=== PATIENT | female | born 1955 | race Caucasian/White ===

== ENCOUNTER → 2020-03-22 14:04 | Outpatient (CLI) | payer OTHER, SELFPAY ==
--- NOTE | ~2020-03-22 | XR_ITS ---
EXAMINATION: [id number]_CR DATE: 03/22/2020 14:36 INDICATION: Right chest pain. Shortness of breath. TECHNIQUE: A frontal view of the chest and 3 views of the right ribs were obtained. COMPARISON: None. FINDINGS: The chest demonstrates clear lungs without pneumonia, pleural effusion, or pneumothorax. Th e heart size is normal. Surgical clips in the right upper quadrant are likely from cholecystectomy. T here is a fracture of right eighth rib. IMPRESSION: 1. Fracture of right eighth rib. Reviewed, dictated and finalized at location A.
== END ==
PROVIDERS: PCP Internal Medicine; Visit Provider Internal Medicine
DX: S22.31XA Fracture of one rib, right side, initial encounter for closed fracture (principal); X58.XXXA Exposure to other specified factors, initial encounter
CPT/HCPCS: 71101

== ENCOUNTER 2020-08-05 07:46 | Outpatient (CLI) | payer OTHER, SELFPAY ==
--- NOTE | ~2020-08-05 | MM_ITS ---
EXAMINATION: MM screening jane BI w katerina HISTORY: Screening TECHNIQUE: Craniocaudal and mediolateral oblique 3-D tomosynthesis images were obtained and synthetic 2-D images were generated. CAD analysis was submitted and interpreted. COMPARISON: No prior mammogram is available for comparison at this institution. BREAST PARENCHYMAL COMPOSITION: There are scattered areas of fibroglandular density. FINDINGS: There is no evidence of suspicious mass, calcification, or architectural distortion to sugg est malignancy in either breast. There has been no suspicious interval change. IMPRESSION: 1. No mammographic evidence of malignancy. 2. Recommend routine screening mammography in one year. BI-RADS Category 1: Negative Reviewed, dictated and finalized at location A. R MOUNTER
== END 2020-08-05 07:47 | disposition home or self-care (01) ==
LOC: ANHIMG 07:51
PROVIDERS: PCP Internal Medicine; Visit Provider Obstetrics & Gynecology
DX: Z12.31 Encounter for screening mammogram for malignant neoplasm of breast (principal)
CPT/HCPCS: 77063; 77067

== ENCOUNTER 2021-09-08 09:53 | Outpatient (CLI) | payer BC, SELFPAY ==
--- NOTE | ~2021-09-08 | MM_ITS ---
EXAMINATION: MM screening jane BI w katerina HISTORY: Screening mammogram TECHNIQUE: Craniocaudal and mediolateral oblique 3-D tomosynthesis images were obtained and synthetic 2-D images were generated. CAD analysis was submitted and interpreted. COMPARISON: 08/05/2020 BREAST PARENCHYMAL COMPOSITION: There are scattered areas of fibroglandular density. FINDINGS: Scattered benign-appearing calcifications are present. There is no evidence of suspicious m ass, calcification, or architectural distortion to suggest malignancy in either breast. There has bee n no suspicious interval change. IMPRESSION: 1. No mammographic evidence of malignancy. 2. Recommend routine screening mammography in one year. BI-RADS Category 2: Benign finding(s). Reviewed, dictated and finalized at location A. HIC SPECIALIST
== END 2021-09-08 09:54 | disposition home or self-care (01) ==
LOC: ANHIMG 09:55
PROVIDERS: PCP Internal Medicine; Visit Provider Obstetrics & Gynecology
DX: Z12.31 Encounter for screening mammogram for malignant neoplasm of breast (principal)
CPT/HCPCS: 77063; 77067

== ENCOUNTER 2022-09-11 09:01 | Outpatient (CLI) | payer OTHER, SELFPAY ==
--- NOTE | ~2022-09-11 | MM_ITS ---
EXAMINATION: MM screening jane BI w katerina HISTORY: Screening mammogram TECHNIQUE: Craniocaudal and mediolateral oblique 3-D tomosynthesis images were obtained and synthetic 2-D images were generated. CAD analysis was submitted and interpreted. COMPARISON: 09/08/2021, 08/05/2020 BREAST PARENCHYMAL COMPOSITION: There are scattered areas of fibroglandular density. FINDINGS: Scattered benign-appearing calcifications are present. No suspicious mass, calcification, o r architectural distortion are identified in either breast to suggest malignancy. There has been no s uspicious interval change. IMPRESSION: 1. No mammographic evidence of malignancy. 2. Recommend routine screening mammography in one year. BI-RADS Category 2: Benign finding(s). Reviewed, dictated and finalized at location A. STER DIRECTOR
== END 2022-09-11 09:02 | disposition home or self-care (01) ==
LOC: ANHIMG 09:04
PROVIDERS: PCP Family Medicine Adolescent Medicine; Visit Provider Obstetrics & Gynecology
DX: Z12.31 Encounter for screening mammogram for malignant neoplasm of breast (principal)
CPT/HCPCS: 77063; 77067

== ENCOUNTER → 2022-11-14 09:25 | Outpatient (CLI) | payer OTHER, SELFPAY ==
--- NOTE | ~2022-11-14 | XR_ITS ---
XR knee LT 3V 11/14/2022 09:58 Indication: Left knee pain Procedure: 3 views of the left knee Comparison: No prior studies for comparison. Findings: No fracture, subluxation or dislocation. There is mild-moderate osteoarthritis. No foreign bodies. No significant joint effusion. Impression: 1: Mild-moderate osteoarthritis of the left knee. Reviewed, dictated and finalized at location L. Impression: 1: Mild-moderate osteoarthritis of the left knee.
--- NOTE | ~2022-11-14 | XR_ITS ---
XR knee RT 3V 11/14/2022 09:58 Indication: Right knee pain Procedure: 3 views right knee Comparison: No prior studies for comparison. Findings: There is mild osteoarthritis of the right knee. No fracture, subluxation or dislocation. No significant joint effusion. Lung bodies. Impression: 1: Mild osteoarthritis of the right knee. Reviewed, dictated and finalized at location L. Impression: 1: Mild osteoarthritis of the right knee.
== END ==
PROVIDERS: PCP Family Medicine Adolescent Medicine; Visit Provider Family Medicine Adolescent Medicine
DX: M17.0 Bilateral primary osteoarthritis of knee (principal)
CPT/HCPCS: 73562

== ENCOUNTER 2023-01-11 02:52 | Day surgery (SDC) | payer OTHER, SELFPAY ==
[2023-01-01 09:53] VITALS: BMI 25.4
[2023-01-11 10:01] VITALS: BP 122/71; PULSE 85; RESP 20; TEMP 36.8; O2SAT 100; BMI 24.4
[2023-01-11] MEDS: LACTATED RINGERS 1,000 ML 150 ML IV CONT (10:07)
--- NOTE | 2023-01-11 10:22 | WPDANESEPPF ---
Anes - Initial Pre Proc Eval Procedure: Operation Date: 01/11/23 10:30 Proposed Procedures p Screening Colonoscopy - Bentley Daniels MD Date/Time: 01/11/23 10:22 Surgeon: Bentley Daniels MD Pre Op Diagnosis: neoplasm screening Patient Data Age: 67 Gender: F Height: 1.55 m Weight: 58.7 kg Last Vital Signs Temp 98.3 F 01/11/23 10:01 Pulse 85 01/11/23 10:01 Resp 20 01/11/23 10:01 BP 122/71 01/11/23 10:01 Pulse Ox 100 01/11/23 10:01 O2 Del Method Room Air 01/11/23 10:01 Allergies Allergy/AdvReac Type Severity Reaction Status Date / Time No Known Allergies Allergy Verified 01/11/23 09:58 Home Medications Medication Instructions Recorded Confirmed Type amantadine HCl 100 mg tablet 100 mg PO DAILY 02/28/22 01/01/23 History calcium carbonate 500 mg/5 mL 500 mg PO DAILY 02/28/22 01/01/23 History calcium (1,250 mg/5 mL) oral suspension carbidopa 25 mg-levodopa 100 1 tablet PO .bedtime 02/28/22 01/01/23 History mg-entacapone 200 mg tablet carbidopa 25 mg-levodopa 100 1 tablet PO TID 02/28/22 01/01/23 History mg-entacapone 200 mg tablet clonazepam 1 mg tablet 2 mg PO QHS 02/28/22 01/01/23 History entacapone 200 mg tablet 200 mg PO TID 02/28/22 01/01/23 History lutein 20 mg capsule 20 mg PO BID 02/28/22 01/01/23 History multivit with 1 tablet PO DAILY 02/28/22 01/01/23 History ehvpwkfa-isfj-HN-lutein 8 mg iron-400 mcg-300 mcg tablet (Centrum Silver Women) vitamin B complex 1 tablet PO DAILY 02/28/22 01/01/23 History ropinirole 1 mg tablet 1 mg PO TID #270 tabs 05/09/22 01/01/23 Rx atorvastatin 40 mg tablet See Rx Instructions .Route 10/24/22 01/01/23 Rx .COMPLEX #90 tabs diclofenac sodium 75 mg 75 mg PO BID #60 tabs 11/05/22 01/01/23 Rx tablet,delayed release Patient hx anesthesia problems: none Family hx anesthesia problems: none Results Review: All pre-operative results and documents have been reviewed as part of the pre-operative evaluation. [facility] Family History Family History (Updated 02/28/22 @ 12:54 by Tatyana Cantu MA) Mother Asthma Diabetes mellitus Heart disease Hypertension Father Heart disease Hypertension Social History Social History (Updated 02/28/22 @ 12:55 by Tatyana Cantu MA) Smoking status: Never smoker Second hand tobacco smoke exposure: No Alcohol intake: never Substance use: never Substance use type: does not use Living arrangements: with family Occupation/Education: retired Gender identity (if verbalized by the patient): Female Spiritual care concerns: No Agree to blood products: Yes Anes - Eval Final PreProcedure Day of Procedure 01/11/23 10:22 Patient weight: normal Heart: regular rate and rhythm Lungs: clear to auscultation Airway: Mallampati scale class II Neurological: alert and oriented Last oral intake: >/= 8 hours ASA classification: III Emergent: no Anesthetic plan: proceed Anesthesia type and monitoring: general GIVS and standard monitoring Results Review: All pre-operative results and documents have been reviewed as part of the pre-operative evaluation. Informed Consent: The patient's anesthetic plan and its attendant risks and benefits were discussed with the patient/family/POA. Questions were solicited and answers provided to the satisfaction of the patient/family/POA.
--- NOTE | 2023-01-11 10:41 | PM.HPGS ---
History of Present Illness History of Present Illness Consent: Risks, benefits, and alternatives have been discussed and questions answered. Patient agrees to proceed with procedure. Chief complaint: neoplasm screening Narrative: Aster Zaragoza is a 67 year old female presents for screening colonoscopy. Patient's current weight appetite and bowel movements are normal. Patient denies abdominal pain she has had no bleeding. Family history noncontributory. Previous colonoscopy more than 15 years ago was unremarkable. Patient's past medical history is significant for Parkinson's disease. Review of Systems Review of Systems: Review of systems noncontributory. [facility] Family History Family History (Updated 02/28/22 @ 12:54 by Tatyana Cantu MA) Mother Asthma Diabetes mellitus Heart disease Hypertension Father Heart disease Hypertension Social History Social History (Updated 02/28/22 @ 12:55 by Tatyana Cantu MA) Smoking status: Never smoker Second hand tobacco smoke exposure: No Alcohol intake: never Substance use: never Substance use type: does not use Living arrangements: with family Occupation/Education: retired Gender identity (if verbalized by the patient): Female Spiritual care concerns: No Agree to blood products: Yes Meds Home Medications and Allergies Home Medications Medication Instructions Recorded Confirmed Type amantadine HCl 100 mg tablet 100 mg PO DAILY 02/28/22 01/01/23 History calcium carbonate 500 mg/5 mL 500 mg PO DAILY 02/28/22 01/01/23 History calcium (1,250 mg/5 mL) oral suspension carbidopa 25 mg-levodopa 100 1 tablet PO .bedtime 02/28/22 01/01/23 History mg-entacapone 200 mg tablet carbidopa 25 mg-levodopa 100 1 tablet PO TID 02/28/22 01/01/23 History mg-entacapone 200 mg tablet clonazepam 1 mg tablet 2 mg PO QHS 02/28/22 01/01/23 History entacapone 200 mg tablet 200 mg PO TID 02/28/22 01/01/23 History lutein 20 mg capsule 20 mg PO BID 02/28/22 01/01/23 History multivit with 1 tablet PO DAILY 02/28/22 01/01/23 History zxryaxay-dwvd-GJ-lutein 8 mg iron-400 mcg-300 mcg tablet (Centrum Silver Women) vitamin B complex 1 tablet PO DAILY 08/23/22 06/26/23 History ropinirole 1 mg tablet 1 mg PO TID #270 tabs 05/09/22 01/01/23 Rx atorvastatin 40 mg tablet See Rx Instructions .Route 10/24/22 01/01/23 Rx .COMPLEX #90 tabs diclofenac sodium 75 mg 75 mg PO BID #60 tabs 11/05/22 01/01/23 Rx tablet,delayed release Allergies Allergy/AdvReac Type Severity Reaction Status Date / Time No Known Allergies Allergy Verified 01/11/23 09:58 Vital Signs Vital Signs - 24 hr 01/11/23 10:01 Temperature 98.3 F Pulse Rate 85 Respiratory Rate 20 Blood Pressure 122/71 Pulse Oximetry 100 Oxygen Delivery Room Air Exam Narrative: Physical exam reveals patient be alert comfortable at rest lying in bed. HEENT exam reveals no icterus. Lungs are clear. Heart without murmur. Abdomen bowel sounds present soft nontender with no organomegaly. Digital external rectal exam normal. Assessment and Plan Assessment and plan (1) Encounter for screening colonoscopy: Code(s): Z12.11 - Encounter for screening for malignant neoplasm of colon Status: Acute Assessment and Plan: Patient presents today for screening colonoscopy. She appears to be at average risk for colon polyps. Further recommendations may be given after endoscopy. (2) Parkinson disease: Code(s): G20 - Parkinson's disease Status: Acute
[2023-01-11 11:36] VITALS: BP 105/60; PULSE 78; RESP 16; O2SAT 100
[2023-01-11 11:46] VITALS: BP 108/66; PULSE 76; RESP 16; O2SAT 100
[2023-01-11 11:56] VITALS: BP 128/61; PULSE 74; RESP 20; O2SAT 100
== END 2023-01-11 12:12 | disposition home or self-care (01) ==
PROVIDERS: PCP Family Medicine Adolescent Medicine; Visit Provider Internal Medicine Gastroenterology
PROC: 0DJD8ZZ Inspection of Lower Intestinal Tract, Via Natural or Artificial Opening Endoscopic (ICD-10-PCS; CPT 45378; principal; 2023-01-11 10:30)
DX: Z12.11 Encounter for screening for malignant neoplasm of colon (principal); K64.8 Other hemorrhoids; G20 Parkinson's disease
CPT/HCPCS: G0121; J2704; J7120

== ENCOUNTER 2023-02-01 09:54 | Emergency (ER) | payer OTHER, SELFPAY ==
[2023-02-01] VITALS (11 sets, daily range): BP systolic 70–106; BP diastolic 27–68; PULSE 49–72; RESP 16–29; TEMP 36.3–36.4; O2SAT 97–100
--- NOTE | ~2023-02-01 | XR_ITS ---
EXAMINATION: XR shoulder RT min 2V, XR humerus RT, XR elbow RT min 3V DATE: 02/01/2023 10:54 INDICATION: Right arm pain at the proximal humerus and bruising at the elbow post fall TECHNIQUE: 1. AP and transscapular Y views of the right shoulder were obtained. 2. AP and lateral views of the right humerus were obtained. 3. AP, lateral and oblique views of the right elbow were obtained. COMPARISON: None FINDINGS: Mild comminution along a transverse fracture extending across the surgical neck of the proximal right humerus. 5 mm posterior displacement and mild posterior angulation still consistent with a 1 part fr acture. No other acute fractures identified. Mild right acromioclavicular osteoarthritis. Right gleno humeral joint space is not well profiled but alignment appears normal. Normal alignment and joint spa miri at the right elbow. Visualized portions of the lungs are clear. Chronic anterior right sixth-eigh th rib fractures. Cholecystectomy clips in right upper quadrant. IMPRESSION: Mildly displaced and angulated and mildly comminuted 1 part fracture at the surgical neck of the prox imal right humerus. Reviewed, dictated and finalized at location A. IMPRESSION: Mildly displaced and angulated and mildly comminuted 1 part fracture at the roderick gical neck of the proximal right humerus. IMPRESSION: Mildly displaced and angulated and mildly comminuted 1 part fracture at the roderick gical neck of the proximal right humerus.
--- NOTE | 2023-02-01 10:28 | PC.NURSE ---
Patient off unit to radiology.
--- NOTE | 2023-02-01 11:45 | ED.UPPEXIN ---
HPI - Extremity Injury (Upper) General Chief Complaint: Extremity Injury, Upper Stated Complaint: r arm/shoulder pain Time Seen by Provider: 02/01/23 11:44 Source: patient and family Limitations: no limitations History of Present Illness HPI narrative: 67 years old white female standing at around at home, tripped and fell on the right side complaining of right shoulder pain, denies other injuries. No head injury or neck injury. History of Parkinson Related Data Home Medications Medication Instructions Recorded Confirmed amantadine HCl 100 mg tablet 100 mg PO DAILY 02/28/22 01/01/23 calcium carbonate 500 mg/5 mL 500 mg PO DAILY 02/28/22 01/01/23 calcium (1,250 mg/5 mL) oral suspension carbidopa 25 mg-levodopa 100 1 tablet PO .bedtime 02/28/22 01/01/23 mg-entacapone 200 mg tablet carbidopa 25 mg-levodopa 100 1 tablet PO TID 02/28/22 01/01/23 mg-entacapone 200 mg tablet clonazepam 1 mg tablet 2 mg PO QHS 02/28/22 01/01/23 entacapone 200 mg tablet 200 mg PO TID 02/28/22 01/01/23 lutein 20 mg capsule 20 mg PO BID 02/28/22 01/01/23 ndyyyznz-wldn-tzuk 8 mg-folic 400 1 tablet PO DAILY 02/28/22 01/01/23 mcg-K 50 mcg-lutein 300 mcg tablet (Centrum Silver Women) vitamin B complex 1 tablet PO DAILY 02/28/22 01/01/23 Allergies Allergy/AdvReac Type Severity Reaction Status Date / Time No Known Allergies Allergy Verified 02/01/23 09:54 Review of Systems Review of Systems: All systems reviewed & are unremarkable except as noted in HPI and below PMFSH Family History Family History Mother Asthma Diabetes mellitus Heart disease Hypertension Father Heart disease Hypertension Social History Social History Smoking status: Never smoker Second hand tobacco smoke exposure: No Alcohol intake: never Substance use: never Substance use type: does not use Living arrangements: with family Occupation/Education: retired Gender identity (if verbalized by the patient): Female Spiritual care concerns: No Agree to blood products: Yes Exam Narrative: General appearance: Well-developed, well-nourished Skin: Normal color Head: Normocephalic, nontraumatic Eyes: Clear conjunctiva ENT: Oropharynx normal, ears normal, nose normal Neck: Supple, nontender Chest and respiratory: Airway patent, no respiratory distress, no accessory muscle use Heart: Regular rate/rhythm Abdomen: Soft, nontender, no organomegaly, quiet bowel sounds Vascular: Normal peripheral pulses, normal capillary refill. 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 Date: 02/01/23 Time: 11:59 Vital Signs Vital signs: Vital Signs Temperature 36.3 C L 02/01/23 09:55 Pulse Rate 54 L 02/01/23 09:55 Respiratory Rate 18 02/01/23 09:55 Blood Pressure 70/27 L 02/01/23 09:55 Pulse Oximetry 100 02/01/23 09:55 Oxygen Delivery Room Air 02/01/23 09:55 Temperature 36.4 C 02/01/23 12:50 Pulse Rate 60 02/01/23 12:50 Respiratory Rate 16 02/01/23 12:50 Blood Pressure 104/68 02/01/23 12:50 Pulse Oximetry 100 02/01/23 12:50 Oxygen Delivery Room Air 02/01/23 09:55 MDM - Extremity Injury (Upper) MDM Narrative Medical decision making narrative: Patient had a ground fall, complaining of right shoulder pain, no other injuries, x-ray right shoulder showed right humeral surgical nec
[2023-02-01] MEDS: ONDANSETRON INJ 4 MG/2 ML VIAL IV PUSH (12:04)
[2023-02-01] MEDS: HYDROmorphone HCL INJ (*CRX) 1 MG/ML SYR 0.5 MG IV PUSH (12:05)
== END 2023-02-01 13:25 | disposition home or self-care (01) ==
PROVIDERS: Emergency Provider Emergency Medicine; PCP Family Medicine Adolescent Medicine
DX: S42.211A Unspecified displaced fracture of surgical neck of right humerus, initial encounter for closed fracture (principal); G20 Parkinson's disease; W01.0XXA Fall on same level from slipping, tripping and stumbling without subsequent striking against object, initial encounter
CPT/HCPCS: 73030; 73060; 73080; 96374; 96375; 99284; J1170; J2405

== ENCOUNTER 2023-11-13 15:39 | Outpatient (CLI) | payer OTHER, SELFPAY ==
--- NOTE | ~2023-11-13 | MM_ITS ---
EXAMINATION: MM screening jane BI w katerina HISTORY: Screening mammogram TECHNIQUE: Craniocaudal and mediolateral oblique 3-D tomosynthesis images were obtained and synthetic 2-D images were generated. CAD analysis was submitted and interpreted. COMPARISON: 09/11/2022, 09/08/2021, 08/05/2020 bilateral screening mammogram examinations BREAST PARENCHYMAL COMPOSITION: There are scattered areas of fibroglandular density. FINDINGS: There is no evidence of suspicious mass, calcification, or architectural distortion to sugg est malignancy in either breast. There has been no suspicious interval change. IMPRESSION: 1. No mammographic evidence of malignancy. 2. Recommend routine screening mammography in one year. BI-RADS Category 1: Negative Reviewed, dictated and finalized at location B.
== END 2023-11-13 15:40 | disposition home or self-care (01) ==
PROVIDERS: PCP Family Medicine Adolescent Medicine; Visit Provider Obstetrics & Gynecology
DX: Z12.31 Encounter for screening mammogram for malignant neoplasm of breast (principal)
CPT/HCPCS: 77063; 77067

== ENCOUNTER 2023-12-18 07:57 | Outpatient (CLI) | payer OTHER, SELFPAY ==
--- NOTE | ~2023-12-18 | DEXA_ITS ---
Bone Density Report Name: SAMMY GOODMAN Age: 68 Sex: Female Ethnicity: White Date of : 1955 Indication: postmenopausal; screening for osteoporosis; Referring Provider: KAT BALL Study: Bone densitometry was performed. Exam Date: December 18, 2023 Accession number: [id number] Bone Density: Region BMD T-score Z-score Classification AP Spine(L1-L4) 0.947 -0.9 1.0 Normal Femoral Neck (Left) 0.604 -2.2 -0.6 Osteopenia Total Hip (Left) 0.821 -1.0 0.3 Normal Femoral Neck (Right) 0.562 -2.6 -1.0 Osteoporosis Total Hip (Right) 0.791 -1.2 0.1 Osteopenia Total Hip Mean 0.806 -1.1 0.2 Osteopenia World Health Organization criteria for BMD impression classify patients as: Normal (T-score at or above -1.0), Osteopenia (T-score between -1.0 and -2.5), or Osteoporosis (T-score at or below -2.5). 10-year Fracture Risk: FRAX not reported because: Some T-score for Spine Total or Hip Total or Femoral Neck at or below -2.5 Clinical Information Provided by Patient: Has used the following medications: Vitamin D, Calcium Patient maximum height was 60 Menopause Age: 52 No regular weight bearing exercise Does not regularly consume dairy products Drinks caffeinated beverages Onset of menses at age 16 Number of children 1 Impression: The patient has osteoporosis, based on the Right Femoral Neck T-score. Discussion: INCREASED RISK OF FRACTURE. BONE DENSITY IS UNDESIRABLY LOW AT ONE OR MORE SKELETAL SITES, CONSISTENT WITH POSTMENOPAUSAL OSTEOPOROSIS. This patient's lowest T-score meets the World Health Organization's (WHO) criteria for osteoporosis at one or more sites (T-score -2.5 or below). In untreated patients, the risk of osteoporotic fracture increases approximately two-fold for each 1.0 SD decrease in T-score. Low bone density is not the only risk factor for fracture; also consider factors such as patient's age, frailty or poor health, risk of falling, risk of injury, previous osteoporotic fracture, family history of osteoporosis, cigarette smoking, low body weight, etc. Not everyone with low bone mineral density has osteoporosis; osteomalacia and other metabolic bone disorders should also be considered. Patients who have osteoporosis should be evaluated for specific diseases and conditions (secondary causes) that may cause or contribute to bone loss. The [place] [employer] Endocrinologists (AACE) and National Osteoporosis Foundation (NOF) recommend pharmacologic intervention for all postmenopausal women whose T-score is in this range. The patient should follow a healthful lifestyle (good nutrition with adequate calcium and vitamin D, and appropriate weight-bearing exercise). Follow-Up: Consider a repeat BMD and Vertebral Fracture Assessment (VFA) exam in 2 years or sooner if medically necessary, to reassess this patient's status. Reported by: JUVENCIO on 12/18/2023 8:31:00
== END 2023-12-18 07:58 | disposition home or self-care (01) ==
PROVIDERS: PCP Family Medicine Adolescent Medicine; Visit Provider Obstetrics & Gynecology
DX: M81.0 Age-related osteoporosis without current pathological fracture (principal); M85.852 Other specified disorders of bone density and structure, left thigh; M85.851 Other specified disorders of bone density and structure, right thigh
CPT/HCPCS: 77080

== ENCOUNTER 2024-04-30 15:22 | Outpatient (CLI) | payer OTHER, SELFPAY ==
--- NOTE | ~2024-04-30 | XR_ITS ---
Exam: Abdomen 2V HISTORY: R10.13 - Epigastric pain COMPARISON: None. TECHNIQUE: Supine images of the abdomen and pelvis. FINDINGS: Bowel gas pattern is non-obstructive. Moderate fecal stasis within the colon and rectum. Significant gaseous distention of the stomach is noted. The liver is enlarged measuring 21 cm in longitudinal dimension IMPRESSION: Significant gaseous distention of the stomach with moderate fecal stasis in the colon and rectum. Hepatomegaly. Reviewed, dictated and finalized at location A.
--- NOTE | ~2024-04-30 | XR_ITS ---
EXAMINATION: XR thoracolumbar DATE: 04/30/2024 16:04 INDICATION: Dorsalgia TECHNIQUE: Standing AP and lateral views of the lumbar and mid to lower thoracic spine were obtained. COMPARISON: None. FINDINGS: Sagittal alignment is normal. Mild lumbar levocurvature. Mild chronic appearing likely physiologic an terior wedging at T12. Remainder of the lumbar and visualized mid to lower thoracic vertebral body he ights are normal. Moderate disc height loss at T5-T6 and T6-T7. Mild disc height loss at T7-T8 throug h T9-T10 and at L2-L3 through L4-L5. There is mild global severe right-sided lumbar facet osteoarthri tis. Cholecystectomy clips in right upper quadrant. Visualized portion of lungs are clear with no ple ural effusion. IMPRESSION: 1. Mild lumbar levocurvature with mild spondylosis and severe right-sided facet osteoarthritis. 2. Mild to moderate midthoracic spondylosis with chronic appearing mild likely physiologic anterior w edging at T12. Reviewed, dictated and finalized at location A. IMPRESSION: 1. Mild lumbar levocurvature with mild spondylosis and severe right-sided facet osteoarthritis. 2. Mild to moderate midthoracic spondylosis with chronic appearing mild likely physiologic anterior wedging at T12.
--- NOTE | ~2024-04-30 | XR_ITS ---
XR ribs RT 2V w CXR 2V Ordering provider: Latasha Melgar DO History: . R07.81 - Pleurodynia . Comparison: None. FINDINGS: BONES: No acute rib fracture. Healing fracture in the right humerus. MEDIASTINUM: The cardiac silhouette is not enlarged. LUNGS: No infiltrates, effusions or pneumothorax. OTHER: No free air under the diaphragm. IMPRESSION: 1. No right rib fracture (Note: subtle/nondisplaced rib fractures can be occult on plain films and i f there is continued clinical suspicion for rib fracture, recommend follow up CT chest). 2. No acute cardiopulmonary findings. Reviewed, dictated and finalized at location A. IMPRESSION: 1. No right rib fracture (Note: subtle/nondisplaced rib fractures can be occul t on plain films and if there is continued clinical suspicion for rib fracture, recommend follow up CT chest). 2. No acute cardiopulmonary findings.
[2024-04-30 16:08] LABS: Basophils Absolute Auto 0.1 K/mm3 (0.0-0.1); Basophils Percent Auto 1.2 % (0.2-1.2); Eosinophils Absolute Auto 0.1 K/mm3 (0-0.3); Eosinophils Percent Auto 1.6 % (0-4.4); Hematocrit 32.3 % (37.0-47.0); Hemoglobin 10.3 g/dL (12.0-15.0); Immature Granulocyte Absolute 0.01 K/mm3 (0.00-0.031); Immature Granulocyte Percent A 0.2 % (0-0.5); Lymphocytes Absolute Auto 1.55 K/mm3 (0.9-3.2); Lymphocytes Percent Auto 35.9 % (18.3-44.2); Mean Corpuscular HGB Conc 31.9 g/dl (32-36); Mean Corpuscular Hemoglobin 31.5 pg (26-34); Mean Corpuscular Volume 98.8 fl (80-100); Mean Platelet Volume 10.8 fl (7.4-10.4); Monocytes Absolute Auto 0.5 K/mm3 (0.1-0.6); Monocytes Percent Auto 10.4 % (2.6-8.5); Neutrophils Absolute Auto 2.2 K/mm3 (1.3-6.7); Neutrophils Percent Auto 50.7 % (45.5-73.1); Platelet Count Result 295 k/mm3 (150-375); Red Blood Count 3.27 M/mm3 (4.2-5.4); Red Cell Distribution Width 12.7 % (11.5-14.5); White Blood Count 4.3 K/mm3 (4.5-10.0)
[2024-04-30 16:18] LABS: Alanine Aminotransferase 8 U/L (6-35); Albumin Level 4.2 g/dL (3.5-5.1); Alkaline Phosphatase 92 U/L (38-126); Anion Gap 5 mmol/L (4-12); Aspartate Amino Transferase 99 U/L (14-36); Bilirubin,Total 0.5 mg/dL (0.2-1.3); Blood Urea Nitrogen 19 mg/dL (7-17); Calcium 9.4 mg/dL (8.4-10.2); Carbon Dioxide 30 mmol/L (22-30); Chloride 102 mmol/L (98-107); Estimated Glomerular Filt Rate > 60; Glucose 97 mg/dL (65-110); Lipase 53 U/L (23-300); Sodium 137 mmol/L (137-145)
== END 2024-04-30 15:23 | disposition home or self-care (01) ==
PROVIDERS: PCP Family Medicine Adolescent Medicine; Visit Provider Family Medicine
DX: R10.13 Epigastric pain (principal); M25.511 Pain in right shoulder; R07.81 Pleurodynia; M47.894 Other spondylosis, thoracic region
CPT/HCPCS: 36415; 71046; 71100; 72080; 74018; 80053; 83690; 85025

== ENCOUNTER 2024-05-26 09:13 | Outpatient (CLI) | payer OTHER, SELFPAY ==
--- NOTE | ~2024-05-26 | CT_ITS ---
EXAMINATION: CT abdomen pelvis w con DATE: 05/26/2024 09:42 INDICATION: Hepatomegaly, not elsewhere classified. Abdominal pain. TECHNIQUE: Computed tomography (CT) of the abdomen and pelvis was performed with 100 mL Omnipaque 350 intravenous contrast. Automated exposure control and iterative reconstruction technique were employe d. The dose-length product was 239.27 mGy-cm. COMPARISON: None. FINDINGS: The visualized portions of the lung bases demonstrate mild cyst. No pleural effusion. The h eart size is normal. No pericardial effusion. There are cysts in the liver measuring up to 5 mm. Ther e is moderate intrahepatic biliary duct dilatation. The common duct is dilated to 2.1 cm. There are c hanges of cholecystectomy. The spleen, pancreas, and adrenal glands are normal. There is a 3 mm stone in right kidney. There are cysts in the kidneys measuring up to 6 mm on the left. There is wall thic kening of the descending and sigmoid colon and rectum, consistent with colitis. There is a large amou nt of stool in the proximal colon. There are no pathologically enlarged lymph nodes. There is no free intraperitoneal fluid. There is severe lumbar spondylosis and mild thoracic spondylosis. IMPRESSION: 1. Colitis involving the descending and sigmoid colon and rectum. 2. Intrahepatic and extrahepatic biliary duct dilatation status post cholecystectomy. Correlate with liver function tests to determinate if this finding is clinically significant. Reviewed, dictated and finalized at location A. LOPER SUPPORT ENGINEER IMPRESSION: 1. Colitis involving the descending and sigmoid colon and rectum. 2. Intrahepatic and extrahepatic biliary duct dilatation status post cholecyste ctomy. Correlate with liver function tests to determinate if this finding is cl inically significant.
[2024-05-26 09:31] LABS: Estimated Glomerular Filt Rate > 60
== END 2024-05-26 09:14 | disposition home or self-care (01) ==
LOC: MICIMG 09:13
PROVIDERS: PCP Family Medicine Adolescent Medicine; Visit Provider Family Medicine
DX: R16.0 Hepatomegaly, not elsewhere classified (principal); R10.84 Generalized abdominal pain; R19.7 Diarrhea, unspecified
CPT/HCPCS: 74177; Q9967

== ENCOUNTER 2024-09-09 10:11 | Outpatient (CLI) | payer OTHER, SELFPAY | END 2024-09-09 10:12 | disposition home or self-care (01) | LOC: MICIMG 10:12 | PROVIDERS: PCP Family Medicine; Visit Provider Family Medicine | DX: M25.511 Pain in right shoulder (principal); M25.552 Pain in left hip; S42.201D Unspecified fracture of upper end of right humerus, subsequent encounter for fracture with routine healing; X58.XXXD Exposure to other specified factors, subsequent encounter | CPT/HCPCS: 73030; 73060; 73502 ==

== ENCOUNTER 2024-11-19 08:43 | Outpatient (CLI) | payer OTHER, SELFPAY ==
--- NOTE | ~2024-11-19 | MM_ITS ---
EXAMINATION: MM screening jane BI w katerina HISTORY: Screening TECHNIQUE: Craniocaudal and mediolateral oblique 3-D tomosynthesis images were obtained and synthetic 2-D images were generated. CAD analysis was submitted and interpreted. COMPARISON: Comparison to multiple prior studies sequentially, with oldest reviewed study dated 08/05. BREAST PARENCHYMAL COMPOSITION: Not dense: There are scattered areas of fibroglandular density. FINDINGS: There is a new focal mass in the subareolar location of the right breast. The left breast i s stable without evidence for malignancy. IMPRESSION: 1. New right subareolar mass. 2. Additional mammographic views and possible breast ultrasound are recommended. BI-RADS Category 0: Incomplete: Needs additional imaging evaluation. Reviewed, dictated and finalized at location A. IMPRESSION: 1. New right subareolar mass. 2. Additional mammographic views and possible breast ultrasound are recommended . BI-RADS Category 0: Incomplete: Needs additional imaging evaluation.
--- OUTSIDE RECORDS SUMMARY | 2024-11-19 08:54 | XMS_ITS | Encounter Summary ---
Author Organization [facility] Address [address] [facility] [place] [address] Care Team Providers Care Keg Inspector Name Role Phone Joseph Ratliff MD Primary Care Provider Jorgito Buitrago MD Primary Care Provider + Encounter Details Date Type Department Care Team (Late st Contact Info) Description 04/18/2018 [facility] Outpatient Visit EXTERNAL NON-[facility] DEPT Unknown, Provider Social History Tobacco Use Types Packs/Day Years Used Date Smoking Tobacco: Never Smokeless Tobacco: Never Alcohol Use Standard Drinks/Week Comments No 0 (1 standard drink = 0.6 oz pur e alcohol) Comments Unknown Sex and Gender Information Value Date Recorded Sex Assigned at Female 02/16/2023 11:16 AM CDT Legal Sex Female 6:19 AM 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 Gender Identity Female 02/16/2023 11:16 AM CDT Sexual Orientation Not on file 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 Not on file Not on file documented as of this encounter Plan of Treatment Upcoming Encounters Date Type Department Care Team (Late st Contact Info) Description 11/25/2024 11:40 AM CDT Procedure visit [facility] [address] [facility] [address] [place] [phone] [place] [address] [phone] documented as of this encounter Visit Diagnoses Not on filedocumented in this encounter Care Teams Keg Inspector Relationship Specialty Start Date End Date Joseph Ratliff MD [address] [place] [phone] PCP - General Internal Medicine 06/23/14 04/03/22 Jorgito Buitrago MD [address] [address] PCP - General Family Medicine 04/04/22 documented as of this encounter
--- OUTSIDE RECORDS SUMMARY | 2024-11-19 08:54 | XMS_ITS | Clinical Summary ---
Author Organization [facility] Address [address] [place] [address] Care Team Providers Care Team Automobile Assembler Name Role Phone None, Provider MD Primary Care Provider Unavaila ble Allergies No known active allergies Medications carbidopa-levod opa 25-100 MG tablet Take 2 tablets by mouth 3 (three) times daily. Active entacapone 200 MG tablet Take 200 mg by mouth 3 (three) times daily. Active ropinirole 1 MG tablet Take 1 mg by mouth 3 (three) times daily. Active fludrocortisone 0.1 MG tablet Take 0.1 mg by mouth every third day. Active multi vitamin/mineral s tablet Take 1 tablet by mouth daily. Active atorvastatin 40 MG tablet Take 40 mg by mouth nightly at bedtime. Active rasagiline 1 MG tablet Take 1 tablet by mouth daily. Active clonazePAM 1 MG tablet TAKE TWO TABLETS BY MOUTH AT BEDTIME 12/03/2018 Active SUMAtriptan 100 MG tablet Take 100 mg by mouth. Active biotin 300 MCG Tab Take 1 tablet by mouth daily. Active Social History Tobacco Use Types Packs/Day Years Used Date Smoking Tobacco: Never Smokeless Tobacco: Never Alcohol Use Standard Drinks/Week Comments No 0 (1 standard drink = 0.6 oz pur e alcohol) AUDIT-C Answer Date Recorded Frequency of Alcohol Consumption Never 12/17/2018 Average Number of Drinks Not on file 019 Frequency of Binge Drinking Not on file 12/07 Comments Unknown Sex and Gender Information Value Date Recorded Sex Assigned at Not on file Legal Sex Female 11:10 AM CDT Gender Identity Not on file Sexual Orientation Not on file Last Filed Vital Signs Vital Sign Reading Time Taken Comments Blood Pressure 92/48 12/18/2018 10:14 AM CDT Pulse 54 12/18/2018 10:14 AM CDT Temperature 36.7 C (98 F) 12/18/2018 10:14 AM CDT Respiratory Rate 16 12/18/2018 10:14 AM CDT Oxygen Saturation - - Inhaled Oxygen Concentration - - Weight 62.6 kg (138 lb) 12/17/2018 11:00 AM CDT Height 154.9 cm (5' 1 ) 12/17/2018 11:00 AM CDT Body Mass Index 26.07 12/17/2018 11:00 AM CDT Plan of Treatment Health Maintenance Due Date Last Done Comments Colorectal Cancer Screening Colonoscopy (10 Years) 1957 Hepatitis C 1975 DTaP, Tdap and Td Vaccines ( 1 - Tdap) 02/07/1976 Mammogram Screening 1997 Pneumococcal Vaccine: 50+ Ye ars (1 of 1 - PCV) 2007 Zoster Vaccines (1 of 2) 2007 Dexa Scan (General) 2022 COVID-19 Vaccine ( - 2023-2 5 season) 2024 RSV Immunization or 60+ Years (1 - 1-dose 75+ series) 02/07/2032 Meningococcal B Vaccine Aged Out No l onger eligible based on patient's age to complete this topic Meningococcal Vaccine Aged Out No karen valentine eligible based on patient's age to complete this topic RSV Immunizations Under 20 Months Aged Out No longer eligible based on patient's age to complete this topic Medical Devices Implanted Type Area Landscape And Yardwork Laborer Device Identifier Shelf Expiration Date Model / Serial / Lot Iol [employer] Zcboo - [id number] Implanted:Qty: 1 on 12/18/2018 by Mehdi Ortiz MD at [facility] Lens Right: Eye [employer] [facility] 12/21/2021 [id number] / [id number] / Insurance [employer] Care Teams Team Automobile Assembler Relationship Specialty Start Date End Date None, Provider, PCP - General 12/17/18
--- OUTSIDE RECORDS SUMMARY | 2024-11-19 08:54 | XMS_ITS | Encounter Summary ---
Author Organization [facility] Address [address] [facility] [place] [address] Care Team Providers Care Advertising Account Executive Name Role Phone Joseph Ratliff MD Primary Care Provider Jorgito Buitrago MD Primary Care Provider + Encounter Details Date Type Department Care Team (Late st Contact Info) Description 08/06/2017 [facility] Outpatient Visit EXTERNAL NON-[facility] DEPT Unknown, Provider Social History Tobacco Use Types Packs/Day Years Used Date Smoking Tobacco: Never Smokeless Tobacco: Never Alcohol Use Standard Drinks/Week Comments No 0 (1 standard drink = 0.6 oz pur e alcohol) Comments Unknown Sex and Gender Information Value Date Recorded Sex Assigned at Female 02/16/2023 11:16 AM CDT Legal Sex Female 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 Gender Identity Female 02/16/2023 11:16 AM CDT Sexual Orientation Not on file 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 Not on file Not on file documented as of this encounter Plan of Treatment Upcoming Encounters Date Type Department Care Team (Late st Contact Info) Description 11/25/2024 11:40 AM CDT Procedure visit [facility] [address] [facility] [address] [place] [phone] [place] [address] [phone] documented as of this encounter Visit Diagnoses Not on filedocumented in this encounter Care Teams Advertising Account Executive Relationship Specialty Start Date End Date Joseph Ratliff MD [address] [place] [phone] PCP - General Internal Medicine 06/23/14 04/03/22 Jorgito Buitrago MD [address] [address] PCP - General Family Medicine 04/04/22 documented as of this encounter
--- OUTSIDE RECORDS SUMMARY | 2024-11-19 08:54 | XMS_ITS | Encounter Summary ---
Author Organization [facility] Address [address] [facility] [place] [address] Care Team Providers Care Fire Control Technician B Name Role Phone Joseph Ratliff MD Primary Care Provider [phone] Jorgito Buitrago MD Primary Care Provider + Encounter Details Date Type Department Care Team (Late Contact Info) Description 09/06/2020 [facility] Outpatient Visit EXTERNAL NON-[facility] DEPT Unknown, Provider Social History Tobacco Use Types Packs/Day Years Used Date Smoking Tobacco: Never Smokeless Tobacco: Never Alcohol Use Standard Drinks/Week Comments No 0 (1 standard drink = 0.6 oz pur e alcohol) Comments Unknown Sex and Gender Information Value Date Recorded Sex Assigned at Female 02/16/2023 11:16 AM CDT Legal Sex Female 6: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 Gender Identity Female 02/16/2023 11:16 AM CDT Sexual Orientation Not on file 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 Not on file Not on file documented as of this encounter Plan of Treatment Upcoming Encounters Date Type Department Care Team (Late Contact Info) Description 11/25/2024 11:40 AM CDT Procedure visit [facility] [address] [facility] [address] [place] [phone] [place] [address] [facility] [address] [phone] documented as of this encounter Visit Diagnoses Not on filedocumented in this encounter Care Teams Fire Control Technician B Relationship Specialty Start Date End Date Joseph Ratliff MD [address] [place] [phone] PCP - General Internal Medicine 06/23/14 04/03/22 Jorgito Buitrago MD [address] [address] PCP - General Family Medicine 04/04/22 documented as of this encounter
--- OUTSIDE RECORDS SUMMARY | 2024-11-19 08:54 | XMS_ITS | Encounter Summary ---
Author Organization [facility] Address [address] [facility] [address] Care Team Providers Care Physician Relations Specialist Name Role Phone Joseph Ratliff MD Primary Care Provider [phone] Jorgito Buitrago MD Primary Care Provider + Encounter Details Date Type Department Care Team (Late st Contact Info) Description 09/04/2017 [facility] Outpatient Visit EXTERNAL NON-[facility] DEPT Unknown, Provider Social History Tobacco Use Types Packs/Day Years Used Date Smoking Tobacco: Never Smokeless Tobacco: Never Alcohol Use Standard Drinks/Week Comments No 0 (1 standard drink = 0.6 oz pur e alcohol) Comments Unknown Sex and Gender Information Value Date Recorded Sex Assigned at Female 02/16/2023 11:16 AM CDT Legal Sex Female 6:19 AM RN TRANSITION Gender Identity Female 02/16/2023 11:16 AM CDT Sexual Orientation Not on file 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 Not on file Not on file documented as of this encounter Plan of Treatment Upcoming Encounters Date Type Department Care Team (Late st Contact Info) Description 11/25/2024 11:40 AM CDT Procedure visit [facility] [address] [facility] [address] [place] [phone] [place] [address] [phone] documented as of this encounter Visit Diagnoses Not on filedocumented in this encounter Care Teams Physician Relations Specialist Relationship Specialty Start Date End Date Joseph Ratliff MD [address] [place] [phone] PCP - General Internal Medicine 06/23/14 04/03/22 Jorgito Buitrago MD [address] [address] PCP - General Family Medicine 04/04/22 documented as of this encounter
--- OUTSIDE RECORDS SUMMARY | 2024-11-19 08:54 | XMS_ITS | CONTINUITY OF CARE DOCUMENT ---
Author Name nicholas peterson Address Unknown Organization [facility] Address [address] [facility] [address] [place] [address] Phone [phone] Care Team Providers Care Goat Farmer Name Role Phone nicholas peterson Unavailable Unavailable INSURANCE PROVIDERS Payer name Policy type / Coverage type [employer] red green party ID [facility] [employer] insurance [employer] [id number] [facility] [id number]
--- OUTSIDE RECORDS SUMMARY | 2024-11-19 08:54 | XMS_ITS | Encounter Summary ---
Author Organization [facility] Address [address] [facility] [place] [address] Care Team Providers Care Sock Drier Name Role Phone Joseph Ratliff MD Primary Care Provider [phone] Jorgito Buitrago MD Primary Care Provider + Encounter Details Date Type Department Care Team (Late Contact Info) Description 08/02/2020 [facility] Outpatient Visit EXTERNAL NON-[facility] DEPT Unknown, Provider Social History Tobacco Use Types Packs/Day Years Used Date Smoking Tobacco: Never Smokeless Tobacco: Never Alcohol Use Standard Drinks/Week Comments No 0 (1 standard drink = 0.6 oz pur e alcohol) Comments Unknown Sex and Gender Information Value Date Recorded Sex Assigned at Female 02/16/2023 11:16 AM CDT Legal Sex Female 6:19 AM 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 No / Unsure 07/23/2020 9:06 AM BIOPROCESSING MANUFACTURING TECHNICIAN documented as of this encounter Plan of Treatment Upcoming Encounters Date Type Department Care Team (Late Contact Info) Description 11/25/2024 11:40 AM CDT Procedure visit [facility] [address] [facility] [address] [place] [phone] [place] [address] [facility] [address] [facility] [address] [place] [phone] documented as of this encounter Visit Diagnoses Not on filedocumented in this encounter Care Teams Sock Drier Relationship Specialty Start Date End Date Joseph Ratliff MD [address] [place] [phone] PCP - General Internal Medicine 06/23/14 04/03/22 Jorgito Buitrago MD [address] [place] [address] [address] [place] [address] PCP - General Family Medicine 04/04/22 documented as of this encounter
--- OUTSIDE RECORDS SUMMARY | 2024-11-19 08:55 | XMS_ITS | Encounter Summary ---
Author Organization [facility] Address [address] [facility] [place] [address] Care Team Providers Care Repairer Veneer Sheet Name Role Phone Joseph Ratliff MD Primary Care Provider [phone] Jorgito Buitrago MD Primary Care Provider + Encounter Details Date Type Department Care Team (Late Contact Info) Description 10/14/2020 [facility] Outpatient Visit EXTERNAL NON-[facility] DEPT Unknown, Provider Social History Tobacco Use Types Packs/Day Years Used Date Smoking Tobacco: Never Smokeless Tobacco: Never Alcohol Use Standard Drinks/Week Comments No 0 (1 standard drink = 0.6 oz pur e alcohol) Comments Unknown Sex and Gender Information Value Date Recorded Sex Assigned at Female 02/16/2023 11:16 AM CDT Legal Sex Female 6:19 AM AIRPORT ENGINEER Gender Identity Female 02/16/2023 11:16 AM CDT Sexual Orientation Not on file 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 Not on file Not on file documented as of this encounter Plan of Treatment Upcoming Encounters Date Type Department Care Team (Late Contact Info) Description 11/25/2024 11:40 AM CDT Procedure visit [facility] [address] [facility] [address] [place] [phone] [place] [address] [facility] [address] [phone] documented as of this encounter Visit Diagnoses Not on filedocumented in this encounter Care Teams Repairer Veneer Sheet Relationship Specialty Start Date End Date Joseph Ratliff MD [address] [place] [phone] PCP - General Internal Medicine 06/23/14 04/03/22 Jorgito Buitrago MD [address] [address] PCP - General Family Medicine 04/04/22 documented as of this encounter
--- OUTSIDE RECORDS SUMMARY | 2024-11-19 08:55 | XMS_ITS | Continuity of Care Document ---
Author Organization [facility] Address [address] [place] [address] [place] [address] Phone Care Team Providers Care Varsity Baseball Coach Name Role Phone Unavailable Unavailable Unavailable Advance Directives Directive Yes / No Effective Date File Name No Information Encounters Encounter Description Practice Location Reason(s) For Visit Diagnoses Date Provider Providers Copied on Encounter [facility], [address] [place] [address] [address], [place], [place], [id number], [place] tel:[phone] [facility] No Information Aug- 0-200 0 No Information Family History Family Member Type Diagnosis Age At Onset No Information Payers Payer name Insurance type Covered alliance party ID Authoriza tion(s) No Information Social History Type Description Quantity Date Captured Comments Sex Female Smoking Status No Information Chief Complaint And Reason For Visit No Information Reason For Referral Reason For Referral No Information History Of Present Illness Encounter Date Complaint History Of Prese nt Illness No Information Functional Status Date Functional Assessmen t No Information Instructions Date Instruction Additional Infor mation No Information Assessments Type Assessment Date No Information Patient Care Teams Name Effective Dates (start - stop) Status Members No Information
--- OUTSIDE RECORDS SUMMARY | 2024-11-19 08:55 | XMS_ITS | Encounter Summary ---
Author Organization [facility] Address [address] [facility] [place] [address] Care Team Providers Care National Account Representative Name Role Phone Joseph Ratliff MD Primary Care Provider [phone] Jorgito Buitrago MD Primary Care Provider + Encounter Details Date Type Department Care Team (Late Contact Info) Description 11/12/2020 [facility] Outpatient Visit EXTERNAL NON-[facility] DEPT Unknown, Provider Social History Tobacco Use Types Packs/Day Years Used Date Smoking Tobacco: Never Smokeless Tobacco: Never Alcohol Use Standard Drinks/Week Comments No 0 (1 standard drink = 0.6 oz pur e alcohol) Comments Unknown Sex and Gender Information Value Date Recorded Sex Assigned at Female 02/16/2023 11:16 AM CDT Legal Sex Female 6:19 AM 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 Gender Identity Female 02/16/2023 11:16 AM CDT Sexual Orientation Not on file 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 Not on file Not on file documented as of this encounter Plan of Treatment Upcoming Encounters Date Type Department Care Team (Late Contact Info) Description 11/25/2024 11:40 AM CDT Procedure visit [facility] [address] [facility] [address] [place] [phone] [place] [address] [facility] [address] [phone] documented as of this encounter Visit Diagnoses Not on filedocumented in this encounter Care Teams National Account Representative Relationship Specialty Start Date End Date Joseph Ratliff MD [address] [place] [phone] PCP - General Internal Medicine 06/23/14 04/03/22 Jorgito Buitrago MD [address] [address] PCP - General Family Medicine 04/04/22 documented as of this encounter
--- OUTSIDE RECORDS SUMMARY | 2024-11-19 08:55 | XMS_ITS | Encounter Summary ---
Author Organization [facility] Address [address] [facility] [address] Care Team Providers Care Renewable Energy Engineer Name Role Phone Joseph Ratliff MD Primary Care Provider Jorgito Buitrago MD Primary Care Provider + Encounter Details Date Type Department Care Team (Late st Contact Info) Description 04/26/2018 [facility] Outpatient Visit EXTERNAL NON-[facility] DEPT Unknown, Provider Social History Tobacco Use Types Packs/Day Years Used Date Smoking Tobacco: Never Smokeless Tobacco: Never Alcohol Use Standard Drinks/Week Comments No 0 (1 standard drink = 0.6 oz pur e alcohol) Comments Unknown Sex and Gender Information Value Date Recorded Sex Assigned at Female 02/16/2023 11:16 AM CDT Legal Sex Female 6:19 AM MEDICAL SALES 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 Gender Identity Female 02/16/2023 11:16 AM CDT Sexual Orientation Not on file 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 Not on file Not on file documented as of this encounter Plan of Treatment Upcoming Encounters Date Type Department Care Team (Late Contact Info) Description 11/25/2024 11:40 AM CDT Procedure visit [facility] [address] [facility] [address] [place] [phone] [place] [address] [phone] documented as of this encounter Visit Diagnoses Not on filedocumented in this encounter Care Teams Renewable Energy Engineer Relationship Specialty Start Date End Date Joseph Ratliff MD [address] [place] [phone] PCP - General Internal Medicine 06/23/14 04/03/22 Jorgito Buitrago MD [address] [address] PCP - General Family Medicine 04/04/22 documented as of this encounter
--- OUTSIDE RECORDS SUMMARY | 2024-11-19 08:55 | XMS_ITS | Clinical Summary ---
Author Organization [facility] [address] Address [address] [place] [phone] Care Team Providers Care Comb Fixer Name Role Phone Jorgito Buitrago MD Primary Care Prov ider Allergies No known active allergies Medications amantadine (SYMMETREL) 100 mg capsule 02/05/2023 Active atorvastatin (LIPITOR) 40 mg tablet Take 1 tablet (40 mg total) by mouth daily Active carbidopa-levod opa CR (SINEMET CR) 25-100 mg per CR tablet Take 1 tablet by mouth nightly 12/04/2022 Active clonazePAM (KlonoPIN) 1 mg tablet Take by mouth nightly Active diclofenac DR (VOLTAREN) 75 mg EC tablet Take 1 tablet (75 mg total) by mouth 2 (two) times a day 02/04/2023 Active entacapone (COMTAN) 200 mg tablet Take 1 tablet (200 mg total) by mouth 3 (three) times a day Active fludrocortisone 0.1 mg tablet Take 1 tablet (0.1 mg total) by mouth every third day Active Myrbetriq 25 mg tablet extended release 24 hr Active rasagiline (AZILECT) 1 mg tablet Take 1 tablet (1 mg total) by mouth daily Active risedronate (ACTONEL) 150 mg tablet TAKE 1 TABLET BY MOUTH MONTHLY 12/05/2022 Active rOPINIRole (REQUIP) 1 mg tablet Take 1 tablet (1 mg total) by mouth 3 (three) times a day Active sodium, potassium & mag sulfates (SUPREP BOWEL KIT) 17.5-3.13-1.6 gram recon soln as directed 12/14/2022 A ctive SUMAtriptan (IMITREX) 100 mg tablet Take 1 tablet (100 mg total) by mouth Active Active Problems Problem Noted Date Diagnosed Date 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 Chronic tension headache 02/18/2014 Parkinson's disease 02/18/2014 Anxiety 02/18/2014 Restless legs 02/18/2014 Hypercholesterolemia 10/03/2011 Surgical History Surgery Date Site/Laterality Comments TUBAL LIGATION Tubal Ligation - (Added by Conv) Medical History Medical History Date Comments Other headache syndrome Headache Syndromes - (Added by Conv) Family History Medical History Relation Name Comments Hypertension Brother 1 Family history of hypertension - (Added by Conv) Diabetes Brother 2 Family history of diabetes mellitus - (Added by Conv) COPD Mother Indira Mac Diabetes Mother Indira Mac Heart disease Mother Indira Mac Hyperlipidemia Mother Indira Mac Family history of hypercholesterolemia - (Added by Conv) Hypertension Mother Indira Mac Heart disease Other Family history of cardiac disorder - Relation: Grandparent (Added by Conv) Migraines Sister Family history of migraine headaches - (Added by Conv) Relation Name Status Comments Brother 1 Brother 2 Mother Indira Mac Other Sister Social History Tobacco Use Types Packs/Day Years Used Date Smoking Tobacco: Former Tobacco Cessation:Counseling Given: Not Answered Comments Unknown Sex and Gender Information Value Date Recorded Sex Assigned at Not on file Legal Sex Female 4:02 AM RAIL OPERATOR Gender Identity Female 02/12/2023 10:45 AM CDT Sexual Orientation Not on file Obstetrics History Last Filed Vital Signs Vital Sign Reading Time Taken Comments Blood Pressure 132/70 02/18/2014 3:22 PM CDT Pulse 93 02/18/2014 3:22 PM CDT Temperature - - Respiratory Rate - - Oxygen Saturation - - Inhaled Oxygen Concentration - - Weight 76.7 kg (169 lb) 02/14/2023 7:49 AM CDT Height 154.9 cm (5' 1 ) 02/14/2023 7:49 AM CDT Body Mass Index 31.93 02/14/2023 7:49 AM CDT Plan of Treatment Health Maintenance Due Date Last Done Comments Breast Cancer Screening-Mammogram 1957 Colon Cancer Screening-Colonoscopy 1955 Depression Screening 1957 Fall Risk Assessment 1957 Hepatitis C Screening 1957 Osteoporosis Screening-Bone Density Scan 1957 Hepatitis B Screening 1975 Pneumococcal vaccine 65+ (2 of 2 - PCV) 05/28/2021 05/28/2020 Well Visit 65+ 2022 Covid-19 Vaccine (5 - 2023-2 5 season) 2024 08/01/2022, 05/18/2021, 10/17/2020, Additional history exists Influenza Vaccine (#1) 2024 , 05/12/2020, 04/20/2014 DTaP/Tdap/Td Vaccine (2 - Td or Tdap) 03/30/2031 03/30/2021 Zoster Vaccine Completed 08/06/2020, 05/28/2020 Insurance [facility] [address] [facility] [address] [facility] Care Teams Comb Fixer Relationship Specialty Start Date End Date Jorgito Buitrago MD [address] [place] [address] PCP - General Family Medicine 02/07/23
--- OUTSIDE RECORDS SUMMARY | 2024-11-19 08:55 | XMS_ITS | Encounter Summary ---
Author Organization [facility] Address [address] [facility] [place] [address] Care Team Providers Care Out Of Town Collection Clerk Name Role Phone Joseph Ratliff MD Primary Care Provider Jorgito Buitrago MD Primary Care Provider + Encounter Details Date Type Department Care Team (Late st Contact Info) Description 05/24/2018 [facility] Outpatient Visit EXTERNAL NON-[facility] DEPT Unknown, Provider Social History Tobacco Use Types Packs/Day Years Used Date Smoking Tobacco: Never Smokeless Tobacco: Never Alcohol Use Standard Drinks/Week Comments No 0 (1 standard drink = 0.6 oz pur e alcohol) Comments Unknown Sex and Gender Information Value Date Recorded Sex Assigned at Female 02/16/2023 11:16 AM CDT Legal Sex Female 6:19 AM STUNT WOMAN Gender Identity Female 02/16/2023 11:16 AM CDT Sexual Orientation Not on file 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 Not on file Not on file documented as of this encounter Plan of Treatment Upcoming Encounters Date Type Department Care Team (Late st Contact Info) Description 11/25/2024 11:40 AM CDT Procedure visit [facility] [address] [facility] [address] [place] [phone] [place] [address] [phone] documented as of this encounter Visit Diagnoses Not on filedocumented in this encounter Care Teams Out Of Town Collection Clerk Relationship Specialty Start Date End Date Joseph Ratliff MD [address] [place] [phone] PCP - General Internal Medicine 06/23/14 04/03/22 Jorgito Buitrago MD [address] [address] PCP - General Family Medicine 04/04/22 documented as of this encounter
--- OUTSIDE RECORDS SUMMARY | 2024-11-19 08:55 | XMS_ITS | Clinical Summary ---
Author Organization [facility] Address [address] [facility] [place] [address] Care Team Providers Care Theater Education Teacher Name Role Phone Jorgito Buitrago MD Primary Care Provider + Source Comments [facility],non-owned Affiliates and Associated Physician Practices is amultiple site organization consisting of ambulatory clinics and hospital sitesin [place], [place], [place] and [place]. This disclosure is being madepursuant to the Care Everywhere program and may not contain all information available regarding this patient. Last updated 18.[facility] Allergies No known active allergies Medications * Be aware that medications may not be up to date on this document. Alwaysverify current medications with the patient. atorvastatin (LIPITOR) 40 MG tablet Take 1 (one) tablet by mouth at bedtime Active risedronate Sodium (ACTONEL) 150 MG tablet Take 1 (one) tablet by mouth every 30 days Active B Jcyuvij-B-Rpxul Acid (SUPER B COMPLEX/FA/VIT C PO) Active Multiple Vitamins-Minera ls (MULTIVITAMIN ADULT PO) Active Cholecalciferol (VITAMIN D3) 1000 units Active Calcium Carbonate-Vit D-Min (CALCIUM 1200 PO) Active MYRBETRIQ 25 MG tablet Take 1 (one) tablet by mouth once daily 02/16/2021 Active rOPINIRole (Requip) 1 MG tablet TAKE 1 TABLET BY MOUTH THREE TIMES A DAY 270 tablet 05/02/2022 Active diclofenac sodium EC (Voltaren) 75 MG tablet 07/03/2022 Active entacapone (Comtan) 200 MG tablet TAKE 1 TABLET BY MOUTH THREE TIMES A DAY 270 tablet 3 11/14/2023 Active carbidopa-levod opa (Sinemet) 25-100 MG tablet TAKE 2 TABLETS BY MOUTH 3 TIMES A DAY 540 tablet 3 04/09/2024 Active carbidopa-levod opa CR (Sinemet CR) 25-100 MG tablet TAKE 1 TABLET BY MOUTH EVERYDAY AT BEDTIME 90 tablet 3 08/05/2024 Active rasagiline (Azilect) 1 MG tablet TAKE 1 TABLET BY MOUTH EVERY DAY 90 tablet 3 08/06/2024 Active clonazePAM (KlonoPIN) 1 MG tablet TAKE 2 TABLETS BY MOUTH AT BEDTIME 60 tablet 5 09/02/2024 Active pantoprazole EC (Protonix) 40 MG tablet Take 1 (one) tablet by mouth once daily 08/21/2024 Active amantadine (Symmetrel) 100 MG capsule TAKE 1 CAPSULE BY MOUTH TWICE A DAY 180 capsule 3 10/01/2024 Active Active Problems Problem Noted Date Diagnosed Date Parkinson disease 06/24/2014 Encounters Date Type Department Care Team Description 10/01/[address] [phone] Forrest Fernandez MD Refill Request 09/15/2024 10:40 AM CDT Procedure visit [address] [phone] Forrest Fernandez MD Sialorrhea ; Parkinson's disease without dyskinesia or fluctuating manifestations; Gait disorder 09/01/2024 Refill [facility] [address] [phone] Forrest Fernandez MD Refill Request from Last 3 Months Family History Medical History Relation Name Comments High Blood Pressure Father Diabetes Mother High Blood Pressure Mother Relation Name Status Comments Father Mother Social History Tobacco Use Types Packs/Day Years Used Date Smoking Tobacco: Never Smokeless Tobacco: Never Tobacco Cessation:Counseling Given: Yes Alcohol Use Standard Drinks/Week Comments No 0 (1 standard drink = 0.6 oz pur e alcohol) Comments Unknown Sex and Gender Information Value Date Recorded Sex Assigned at Female 02/16/2023 11:16 AM CDT Legal Sex Female 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 AM 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 Gender Identity Female 02/16/2023 11:16 AM CDT Sexual Orientation Not on file 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 Not on file Not on file Last Filed Vital Signs Vital Sign Reading Time Taken Comments Blood Pressure 112/84 12/27/2020 9:50 AM CDT Pulse 76 12/27/2020 9:50 AM CDT Temperature 36.3 C (97.4 F) 10/02/2017 6:31 PM CDT Respiratory Rate 16 11/09/2021 10:31 AM CDT Oxygen Saturation 99% 12/27/2020 9:50 AM CDT Inhaled Oxygen Concentration - - Weight 55.8 kg (123 lb) 09/15/2024 10:33 AM CDT Height 154.9 cm (5' 1 ) 09/15/2024 10:33 AM CDT Body Mass Index 23.24 09/15/2024 10:33 AM CDT Plan of Treatment Upcoming Encounters Date Type Department Care Team (Late st Contact Info) Description 11/25/2024 11:40 AM CDT Procedure visit [facility] [address] [facility] [address] [place] [phone] [place] [address] [facility] [address] [place] [address] Health Maintenance Due Date Last Done Comments BONE DENSITY TESTING 1957 COLOGUARD (AGES 45-75) - COL ON CA SCREENING 1957 COLON MONITORING 1957 COLONOSCOPY - COLON CA SCREENING 1957 CT COLONOGRAPHY - COLON CA SCREENING 1957 Colorectal Cancer Screening 1957 FIT - COLON CA SCREENING 1957 FLEX SIG - COLON CA SCREENING 1957 MAMMOGRAM 1957 MEDICARE AWV 12 MONTHS 1957 HEPATITIS C SCREENING 02/02/1975 DTAP/TDAP/TD VACCINES (1 - Tdap) 02/07/1976 PNEUMOCOCCAL VACCINE 50+ (1 of 1 - PCV) 2007 ZOSTER VACCINE (1 of 2) 2007 Respiratory Syncytial Virus (RSV) Vaccine Pt: or over 60 yrs (1 - Risk 60-74 years 1-dose series) 2017 COVID-19 VACCINE (1 - 2023-2 5 season) 2024 DEPRESSION SCREENING 07/09/2024 INFLUENZA VACCINE (Season Ended) 2025 HEPATITIS B VACCINE Aged Out No longe r eligible based on patient's age to complete this topic HIB VACCINE Aged Out No longer eligi ble based on patient's age to complete this topic HPV VACCINE Aged Out No longer eligi ble based on patient's age to complete this topic MENINGOCOCCAL (Group B) VACC INE SHARED DECISION-MAKING Aged Out No longer eligibl e based on patient's age to complete this topic MENINGOCOCCAL GROUPS A/C/Y/W VACCINE Aged Out No longer eligible b ased on patient's age to complete this topic Insurance [employer] ADV PPO Care Teams Theater Education Teacher Relationship Specialty Start Date End Date Jorgito Buitrago MD [address] [address] PCP - General Family Medicine 04/04/22
--- OUTSIDE RECORDS SUMMARY | 2024-11-19 08:55 | XMS_ITS | Referral Summary ---
Author Organization [facility] [address] Address [address] [place] [phone] Care Team Providers Care Seam Hammerer Name Role Phone Jorgito Buitrago MD Primary [...] Anxiety 02/18/2014 Restless legs 02/18/2014 Hypercholesterolemia 10/03/2011 Social History Tobacco Use Types Packs/Day Years Used Date Smoking Tobacco: Former Tobacco Cessation:Counseling Given: Not Answered Comments Unknown Sex and Gender Information Value Date Recorded Sex Assigned at Not on file Legal Sex Female 4:02 AM LIFT BUILDER WHOLE Gender Identity Female 02/12/2023 10:45 AM CDT Sexual Orientation Not on file Last Filed [...] 02/14/2023 7:49 AM CDT Plan of Treatment Not on file Insurance [facility] Care Teams Seam Hammerer Relationship Specialty Start Date End Date Jorgito Buitrago MD [address] [place] [address] PCP - General Family Medicine 02/07/23
== END 2024-11-19 08:44 | disposition home or self-care (01) ==
LOC: ANHIMG 08:46
PROVIDERS: PCP Family Medicine; Visit Provider Obstetrics & Gynecology
DX: Z12.31 Encounter for screening mammogram for malignant neoplasm of breast (principal); R92.8 Other abnormal and inconclusive findings on diagnostic imaging of breast
CPT/HCPCS: 77063; 77067

== ENCOUNTER 2024-12-17 10:45 | Outpatient (CLI) | payer OTHER, SELFPAY ==
--- NOTE | ~2024-12-17 | MMUS_ITS ---
EXAMINATION: US breast RT limited, MM diagnostic jane RT w katerina HISTORY: Subareolar right breast mass TECHNIQUE: Additional 3-D tomosynthesis images of the right breast were performed and synthetic 2-D i mages were generated. CAD analysis was submitted and interpreted. High resolution Limited right breas t ultrasound was performed. COMPARISON: Comparison to multiple prior studies sequentially, with oldest reviewed study dated 08/05. BREAST PARENCHYMAL COMPOSITION: Not dense: There are scattered areas of fibroglandular density. FINDINGS: MAMMOGRAPHIC FINDINGS: There are inverted nipples. Considering inverted nipples, there is a developing mass in the subareola r location of the right breast. There are no suspicious calcifications or architectural distortion in the right breast. ULTRASOUND: Limited right breast ultrasound: In the subareolar location of the right breast there is an oval slig htly irregular shaped parallel oriented hypoechoic mass measuring .9 x 1.2 x 0.5 cm without significa nt internal vascularity or posterior features. IMPRESSION: 1. Subareolar right breast mass measuring 1.2 x 0.9 x 0.5 cm 2. Recommend ultrasound-guided right breast biopsy. BI-RADS category 4, suspicious findings. Reviewed, dictated and finalized at location B. IMPRESSION: 1. Subareolar right breast mass measuring 1.2 x 0.9 x 0.5 cm 2. Recommend ultrasound-guided right breast biopsy. BI-RADS category 4, suspicious findings.
--- OUTSIDE RECORDS SUMMARY | 2024-12-17 12:42 | XMS_ITS | Encounter Summary ---
Author Organization [facility] Address [address] [facility] [place] [address] Care Team Providers Care Mosaicist Name Role Phone Joseph Ratliff MD Primary Care Provider Jorgito Buitrago MD Primary Care Provider + Encounter Details Date Type Department Care Team (Late st Contact Info) Description 04/26/2018 [facility] Outpatient Visit EXTERNAL NON-[facility] DEPT Unknown, Provider Social History Tobacco Use Types Packs/Day Years Used Date Smoking Tobacco: Never Smokeless Tobacco: Never Alcohol Use Standard Drinks/Week Comments No 0 (1 standard drink = 0.6 oz pur e alcohol) Comments Unknown Sex and Gender Information Value Date Recorded Sex Assigned at Female 02/16/2023 11:16 AM CDT Legal Sex Female 6:19 AM RUG CLEANER Gender Identity Female 02/16/2023 11:16 AM CDT Sexual Orientation Not on file 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 [address] [place] [phone] [place] [address] [phone] documented as of this encounter Visit Diagnoses Not on filedocumented in this encounter Care Teams Mosaicist Relationship Specialty Start Date End Date Joseph Ratliff MD [address] [place] [phone] PCP - General Internal Medicine 06/23/14 04/03/22 Jorgito Buitrago MD [address] [address] PCP - General Family Medicine 04/04/22 documented as of this encounter
--- OUTSIDE RECORDS SUMMARY | 2024-12-17 12:42 | XMS_ITS | CONTINUITY OF CARE DOCUMENT ---
Author Name nicholas peterson Address Unknown Organization [facility] Address [address] [place] [address] Phone [phone] Care Team Providers Care Java Programming Professor Name Role Phone nicholas peterson Unavailable Unavailable INSURANCE PROVIDERS Payer name Policy type / Coverage type Atiya red alliance party ID [facility] [employer] insurance [employer] [id number] [facility] [id number]
--- OUTSIDE RECORDS SUMMARY | 2024-12-17 12:42 | XMS_ITS | Clinical Summary ---
Author Organization [facility] Address [address] [place] [address] Care Team Providers Care Drop Board Man Name Role Phone Jorgito Buitrago MD Primary Care Provider + Source Comments [facility],non-owned Affiliates and Associated Physician Practices is amultiple site organization consisting of ambulatory clinics and hospital sitesin [place], [place], [place] and [place]. This disclosure is being madepursuant to the Care Everywhere program and may not contain all information available regarding this patient. Last updated 18.[facility] Allergies No known active allergies Medications * Be aware that medications may not be up to date on this document. Alwaysverify current medications with the patient. atorvastatin (LIPITOR) 40 MG tablet Take 1 (one) tablet by mouth at bedtime Active risedronate Sodium (ACTONEL) 150 MG tablet Take 1 (one) tablet by mouth every 30 days Active B Cwsgxuc-M-Srvat Acid (SUPER B COMPLEX/FA/VIT C PO) Active [...] A DAY 180 capsule 3 10/01/2024 Active oxyBUTYnin CR 24hr (Ditropan-XL) 10 MG tablet Take 1 (one) tablet by mouth once daily 11/07/2024 Active Hospital, Clinic, or Other Facility Administered Medication Ordered Dose Route Frequency Start Date End Date Status incobotulinumtoxin A (Xeomin) injection 100 UnitsIndications:Sialorrhea 100 Units IM ONCE 11/25/2024 11/26/19 Ended Active Problems Problem Noted Date Diagnosed Date Parkinson disease 06/24/2014 Encounters Date Type Department Care Team Description 11/25/2024 11:40 AM CDT Procedure [facility] [employer] [address] [place] [address] Forrest Fernandez MD Sialorrhea ; Parkinson's disease without dyskinesia or fluctuating manifestations (HCC); Gait disorder; Memory loss; Dyskinesia 10/01/2024 Refill [facility] [address] [facility] [address] [place] [phone] Forrest Fernandez MD Refill Request from Last [...] AM CDT Legal Sex Female 6:19 AM 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 Gender Identity Female 02/16/2023 11:16 AM CDT [...] - - Weight 55.8 kg (123 lb) 11/25/2024 11:29 AM CDT Height 154.9 cm (5' 1) 11/25/2024 11:29 AM CDT Body Mass Index 23.24 11/25/2024 11:29 AM CDT Plan of Treatment Upcoming Encounters Date Type Department Care Team (Late st Contact Info) Description 02/03/2025 10:40 AM CDT Procedure visit [facility] [address] [facility] [address] [place] [address] [place] [address] [facility] [address] [place] [address] Health Maintenance Due Date Last [...] 60-74 years 1-dose series) 2017 COVID-19 VACCINE (2023-2 5 season) 2024 DEPRESSION SCREENING 07/09/2024 INFLUENZA [...] patient's age to complete this topic Insurance [id number] [employer] PPO Care Teams Drop Board Man Relationship Specialty Start Date End Date Jorgito Buitrago MD [address] [place] [address] [address] [place] [address] PCP - General Family Medicine 04/04/22
--- OUTSIDE RECORDS SUMMARY | 2024-12-17 12:42 | XMS_ITS | Encounter Summary ---
Author Organization [facility] Address [address] [place] [address] Care Team Providers Care Leather Scrubber Name Role Phone Joseph Ratliff MD Primary Care Provider Jorgito Buitrago MD Primary Care Provider + Encounter Details Date Type Department Care Team (Late Contact Info) Description 09/06/2020 [facility] Outpatient Visit EXTERNAL NON-[facility] DEPT Unknown, Provider Social History Tobacco Use Types Packs/Day Years Used Date Smoking Tobacco: Never Smokeless Tobacco: Never Alcohol Use Standard Drinks/Week Comments No 0 (1 standard drink = 0.6 oz pur e alcohol) Comments Unknown Sex and Gender Information Value Date Recorded Sex Assigned at Female 02/16/2023 11:16 AM CDT Legal Sex Female 6:19 AM POLE TESTER Gender Identity Female 02/16/2023 11:16 AM CDT Sexual Orientation Not on file 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 Not on file Not on file documented as of this encounter Plan of Treatment Upcoming Encounters Date Type Department Care Team (Late Contact Info) Description 02/03/2025 10:40 AM CDT Procedure visit [facility] [address] [facility] [address] [place] [phone] [place] [address] [facility] [address] [phone] documented as of this encounter Visit Diagnoses Not on filedocumented in this encounter Care Teams Leather Scrubber Relationship Specialty Start Date End Date Joseph Ratliff MD [address] [place] [phone] PCP - General Internal Medicine 06/23/14 04/03/22 Jorgito Buitrago MD [address] [address] PCP - General Family Medicine 04/04/22 documented as of this encounter
--- OUTSIDE RECORDS SUMMARY | 2024-12-17 12:42 | XMS_ITS | Encounter Summary ---
Author Organization [facility] Address [address] [place] [address] Care Team Providers Care Adjunct Phlebotomy Instructor Name Role Phone Joseph Ratliff MD Primary Care Provider Jorgito Buitrago MD Primary Care Provider + Encounter Details Date Type Department Care Team (Late st Contact Info) Description 09/04/2017 [facility] Outpatient Visit [facility] DEPT Unknown, Provider Social History Tobacco Use Types Packs/Day Years Used Date Smoking Tobacco: Never Smokeless Tobacco: Never Alcohol Use Standard Drinks/Week Comments No 0 (1 standard drink = 0.6 oz pur e alcohol) Comments Unknown Sex and Gender Information Value Date Recorded Sex Assigned at Female 02/16/2023 11:16 AM CDT Legal Sex Female 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 Gender Identity Female 02/16/2023 11:16 AM CDT Sexual Orientation Not on file 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 Not on file Not on file documented as of this encounter Plan of Treatment Upcoming Encounters Date Type Department Care Team (Late st Contact Info) Description 02/03/2025 10:40 AM CDT Procedure visit [facility] [address] [facility] [address] [place] [phone] [place] [address] [phone] documented as of this encounter Visit Diagnoses Not on filedocumented in this encounter Care Teams Adjunct Phlebotomy Instructor Relationship Specialty Start Date End Date Joseph Ratliff MD [address] [place] [phone] PCP - General Internal Medicine 06/23/14 04/03/22 Jorgito Buitrago MD [address] [address] PCP - General Family Medicine 04/04/22 documented as of this encounter
--- OUTSIDE RECORDS SUMMARY | 2024-12-17 12:42 | XMS_ITS | Continuity of Care Document ---
Author Organization [facility] Address [address] [place] [address] [place] [address] Phone Care Team Providers Care Needle Grinder Name Role Phone Unavailable Unavailable Unavailable Advance Directives Directive Yes / No Effective Date File Name No Information Encounters Encounter Description Practice Location Reason(s) For Visit Diagnoses Date Provider Providers Copied on Encounter [facility], [address] [place] [address] [address], [place], [place], [id number], [place] tel:[phone] [facility] No Information 0-200 0 No Information Family History Family [...]
--- OUTSIDE RECORDS SUMMARY | 2024-12-17 12:42 | XMS_ITS | Encounter Summary ---
Author Organization [facility] Address [address] [facility] [place] [address] Care Team Providers Care Talent Acquisition Manager Name Role Phone Joseph Ratliff MD Primary Care Provider Jorgito Buitrago MD Primary Care Provider + Encounter Details Date Type Department Care Team (Late st Contact Info) Description 08/06/2017 [facility] Outpatient Visit EXTERNAL NON-[facility] DEPT Unknown, Provider Social History Tobacco Use Types Packs/Day Years Used Date Smoking Tobacco: Never Smokeless Tobacco: Never Alcohol Use Standard Drinks/Week Comments No 0 (1 standard drink = 0.6 oz pur e alcohol) Comments Unknown Sex and Gender Information Value Date Recorded Sex Assigned at Female 02/16/2023 11:16 AM CDT Legal Sex Female 6:19 AM DYNAMICIST Gender Identity Female 02/16/2023 11:16 AM CDT Sexual Orientation Not on file 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 Not on file Not on file documented as of this encounter Plan of Treatment Upcoming Encounters Date Type Department Care Team (Late st Contact Info) Description 02/03/2025 10:40 AM CDT Procedure visit [facility] [address] [facility] [address] [place] [phone] [place] [address] [phone] documented as of this encounter Visit Diagnoses Not on filedocumented in this encounter Care Teams Talent Acquisition Manager Relationship Specialty Start Date End Date Joseph Ratliff MD [address] [place] [phone] PCP - General Internal Medicine 06/23/14 04/03/22 Jorgito Buitrago MD [address] [address] PCP - General Family Medicine 04/04/22 documented as of this encounter
--- OUTSIDE RECORDS SUMMARY | 2024-12-17 12:42 | XMS_ITS | Encounter Summary ---
Author Organization [facility] Address [address] [facility] [place] [address] Care Team Providers Care Stockroom Worker Name Role Phone Joseph Ratliff MD Primary Care Provider [phone] Jorgito Buitrago MD Primary Care Provider + Encounter Details Date Type Department Care Team (Late st Contact Info) Description 10/14/2020 [facility] Outpatient Visit EXTERNAL NON-[facility] DEPT Unknown, Provider Social History Tobacco Use Types Packs/Day Years Used Date Smoking Tobacco: Never Smokeless Tobacco: Never Alcohol Use Standard Drinks/Week Comments No 0 (1 standard drink = 0.6 oz pur e alcohol) Comments Unknown Sex and Gender Information Value Date Recorded Sex Assigned at Female 02/16/2023 11:16 AM CDT Legal 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 [address] [place] [phone] [place] [address] [facility] [address] [phone] documented as of this encounter Visit Diagnoses Not on filedocumented in this encounter Care Teams Stockroom Worker Relationship Specialty Start Date End Date Joseph Ratliff MD [address] [place] [phone] PCP - General Internal Medicine 06/23/14 04/03/22 Jorgito Buitrago MD [address] [address] PCP - General Family Medicine 04/04/22 documented as of this encounter
--- OUTSIDE RECORDS SUMMARY | 2024-12-17 12:42 | XMS_ITS | Encounter Summary ---
Author Organization [facility] Address [address] [facility] [place] [address] Care Team Providers Care Recovery Assistant Name Role Phone Joseph Ratliff MD Primary Care Provider [phone] Jorgito Buitrago MD Primary Care Provider + Encounter Details Date Type Department Care Team (Late Contact Info) Description 08/02/2020 [facility] Outpatient Visit EXTERNAL NON-[facility] DEPT Unknown, Provider Social History Tobacco Use Types Packs/Day Years Used Date Smoking Tobacco: Never Smokeless Tobacco: Never Alcohol Use Standard Drinks/Week Comments No 0 (1 standard drink = 0.6 oz pur e alcohol) Comments Unknown Sex and Gender Information Value Date Recorded Sex Assigned at Female 02/16/2023 11:16 AM CDT Legal Sex Female 6:19 AM RENAL TECHNICIAN Gender Identity Female 02/16/2023 11:16 AM [...] COVID-19? No / Unsure 07/23/2020 9:06 AM RENAL TECHNICIAN documented as of this encounter Plan of Treatment Upcoming Encounters Date Type Department Care Team (Late Contact Info) Description 02/03/2025 10:40 AM CDT Procedure visit [facility] [address] [facility] [address] [place] [phone] [place] [address] [facility] [address] [place] [address] documented as of this encounter Visit Diagnoses Not on filedocumented in this encounter Care Teams Recovery Assistant Relationship Specialty Start Date End Date Joseph Ratliff MD [address] [place] [phone] PCP - General Internal Medicine 06/23/14 04/03/22 Jorgito Buitrago MD [address] [place] [address] [address] [place] [address] PCP - General Family Medicine 04/04/22 documented as of this encounter
--- OUTSIDE RECORDS SUMMARY | 2024-12-17 12:42 | XMS_ITS | Referral Summary ---
Author Organization [facility] [address] Address [address] [place] [phone] Care Team Providers Care Music Industry Internship Name Role Phone Jorgito Buitrago MD Primary [...] on file Legal Sex Female 4:02 AM HOSPITAL AIDE Gender Identity Female 02/12/2023 10:45 AM CDT [...] 7:49 AM CDT Height 154.9 cm (5' 1) 02/14/2023 7:49 AM CDT Body Mass Index 31.93 02/14/2023 7:49 AM CDT Plan of Treatment Not on file Insurance [facility] Care Teams Music Industry Internship Relationship Specialty Start Date End Date Jorgito Buitrago MD [address] [place] [address] PCP - General Family Medicine 02/07/23
--- OUTSIDE RECORDS SUMMARY | 2024-12-17 12:42 | XMS_ITS | Encounter Summary ---
Author Organization [facility] Address [address] [facility] [place] [address] Care Team Providers Care Portrait Consultant Name Role Phone Joseph Ratliff MD Primary Care Provider [phone] Jorgito Buitrago MD Primary Care Provider + Encounter Details Date Type Department Care Team (Late st Contact Info) Description 04/18/2018 [facility] Outpatient Visit EXTERNAL NON-[facility] DEPT Unknown, Provider Social History Tobacco Use Types Packs/Day Years Used Date Smoking Tobacco: Never Smokeless Tobacco: Never Alcohol Use Standard Drinks/Week Comments No 0 (1 standard drink = 0.6 oz pur e alcohol) Comments Unknown Sex and Gender Information Value Date Recorded Sex Assigned at Female 02/16/2023 11:16 AM CDT Legal Sex Female 6:19 AM 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 [address] [place] [phone] [place] [address] [phone] documented as of this encounter Visit Diagnoses Not on filedocumented in this encounter Care Teams Portrait Consultant Relationship Specialty Start Date End Date Joseph Ratliff MD [address] [place] [phone] PCP - General Internal Medicine 06/23/14 04/03/22 Jorgito Buitrago MD [address] [address] PCP - General Family Medicine 04/04/22 documented as of this encounter
--- OUTSIDE RECORDS SUMMARY | 2024-12-17 12:42 | XMS_ITS | Encounter Summary ---
Author Organization [facility] Address [address] [facility] [place] [address] Care Team Providers Care Dairy Store Manager Name Role Phone Joseph Ratliff MD Primary Care Provider Jorgito Buitrago MD Primary Care Provider + Encounter Details Date Type Department Care Team (Late st Contact Info) Description 05/24/2018 [facility] Outpatient Visit EXTERNAL NON-[facility] DEPT Unknown, Provider Social History Tobacco Use Types Packs/Day Years Used Date Smoking Tobacco: Never Smokeless Tobacco: Never Alcohol Use Standard Drinks/Week Comments No 0 (1 standard drink = 0.6 oz pur e alcohol) Comments Unknown Sex and Gender Information Value Date Recorded Sex Assigned at Female 02/16/2023 11:16 AM CDT Legal Sex Female 6:19 AM BOX SEALING MACHINE 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 Gender Identity Female 02/16/2023 11:16 AM CDT Sexual Orientation Not on file 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 Not on file Not on file documented as of this encounter Plan of Treatment Upcoming Encounters Date Type Department Care Team (Late st Contact Info) Description 02/03/2025 10:40 AM CDT Procedure visit [facility] [address] [facility] [address] [place] [phone] [place] [address] [phone] documented as of this encounter Visit Diagnoses Not on filedocumented in this encounter Care Teams Dairy Store Manager Relationship Specialty Start Date End Date Joseph Ratliff MD [address] [place] [phone] PCP - General Internal Medicine 06/23/14 04/03/22 Jorgito Buitrago MD [address] [address] PCP - General Family Medicine 04/04/22 documented as of this encounter
--- OUTSIDE RECORDS SUMMARY | 2024-12-17 12:42 | XMS_ITS | Encounter Summary ---
Author Organization [facility] Address [address] [facility] [place] [address] Care Team Providers Care Navy Fighter Pilot Name Role Phone Joseph Ratliff MD Primary Care Provider Jorgito Buitrago MD Primary Care Provider + Encounter Details Date Type Department Care Team (Late Contact Info) Description 11/12/2020 [facility] Outpatient Visit EXTERNAL NON-[facility] DEPT Unknown, Provider Social History Tobacco Use Types Packs/Day Years Used Date Smoking Tobacco: Never Smokeless Tobacco: Never Alcohol Use Standard Drinks/Week Comments No 0 (1 standard drink = 0.6 oz pur e alcohol) Comments Unknown Sex and Gender Information Value Date Recorded Sex Assigned at Female 02/16/2023 11:16 AM CDT Legal Sex Female 6:19 AM SILVER STEWARD Gender Identity Female 02/16/2023 11:16 AM CDT Sexual Orientation Not on file 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 Not on file Not on file documented as of this encounter Plan of Treatment Upcoming Encounters Date Type Department Care Team (Late Contact Info) Description 02/03/2025 10:40 AM CDT Procedure visit [facility] [address] [facility] [address] [place] [phone] [place] [address] [facility] [address] [phone] documented as of this encounter Visit Diagnoses Not on filedocumented in this encounter Care Teams Navy Fighter Pilot Relationship Specialty Start Date End Date Joseph Ratliff MD [address] [place] [phone] PCP - General Internal Medicine 06/23/14 04/03/22 Jorgito Buitrago MD [address] [address] PCP - General Family Medicine 04/04/22 documented as of this encounter
--- OUTSIDE RECORDS SUMMARY | 2024-12-17 12:42 | XMS_ITS | Clinical Summary ---
Author Organization [facility] [address] Address [address] [place] [phone] Care Team Providers Care Circular Clerk Name Role Phone Jorgito Buitrago MD Primary [...] on file Legal Sex Female 4:02 AM SEWER PIPE CLEANER Gender Identity Female 02/12/2023 10:45 AM CDT [...] 05/18/2021, 10/17/2020, Additional history exists Influenza Vaccine (Season Ended) 2025 03/30/2021, 05/12/2020, 04/20/2014 DTaP/Tdap/Td Vaccine (2 - Td or Tdap) 03/30/2031 03/30/2021 Zoster Vaccine Completed 08/06/2020, 05/28/2020 Insurance [facility] [address] [facility] [place] [address] [facility] Care Teams Circular Clerk Relationship Specialty Start Date End Date Jorgito Buitrago MD [address] [place] [address] PCP - General Family Medicine 02/07/23
== END 2024-12-17 10:46 | disposition home or self-care (01) ==
LOC: ANHIMG 10:48
PROVIDERS: PCP Family Medicine; Visit Provider Obstetrics & Gynecology
DX: R92.8 Other abnormal and inconclusive findings on diagnostic imaging of breast (principal)
CPT/HCPCS: 76642; 77061; 77065; G0279

== ENCOUNTER 2025-01-06 07:08 | Outpatient (CLI) | payer OTHER, SELFPAY ==
--- NOTE | ~2025-01-06 | MMUS_ITS ---
.. EXAMINATION: US breast biopsy RT w image, MM post biopsy diagnostic RT DATE: 01/06/2025 09:43 (accession [id number]), 01/06/2025 08:49 (accession [id number]) INDICATION: 69-year-old woman presents with a BI-RADS 4 finding in the subareolar position of the rig ht breast for ultrasound-guided biopsy. BREAST PARENCHYMAL COMPOSITION:Scattered fibroglandular pattern TECHNIQUE: The procedure including the risks, benefits, and alternatives was discussed with the patie nt. Risks discussed included bleeding and infection. The patient understood the risks and agreed to proceed. The skin overlying the right was prepped and draped in usual sterile fashion. Anesthetic was adminis tered with 1% lidocaine subcutaneously. Limited ultrasound examination of the right breast was then again performed. In the subareolar position of the right breast is a mostly well-circumscribed focus of mixed echogeni city measuring 12 x 5 x 8 mm, for which biopsy is requested. A 13G introducer was placed using ultrasound guidance into the abnormality in the retroareolar positi on of the right breast, and the inner needle removed. A 14-gauge biopsy device was then used to obtain approximately 8 biopsy specimens under continuous so nographic guidance. Access to this area was markedly limited secondary to poor acoustic penetration, nipple inversion and mobile behavior of the abnormality. The biopsy device was then removed, and through the introducer a butterfly marker was placed. The entry site was cleaned and dressed with Steri-Strips. There were no immediate complications. Post biopsy mammography was then performed in both the CC and MLO positions demonstrating a butterfly microclip in the retroareolar position of the right breast, approximately 3.5 mm deep to the abnorma lity. Multiple foci of air are identified within the abnormality in the retroareolar position. IMPRESSION: 1. Technically successful ultrasound-guided core biopsy of an abnormality in the retroareolar positio n with post procedure mammography to confirm marker placement. Pathology pending Reviewed, dictated and finalized at location A. IMPRESSION: 1. Technically successful ultrasound-guided core biopsy of an abnormality in th e retroareolar position with post procedure mammography to confirm marker place ment. Pathology pending
--- OUTSIDE RECORDS SUMMARY | 2025-01-06 07:12 | XMS_ITS | Referral Summary ---
Author Organization [facility] [address] [place] Address [facility] [place] [address] Care Team Providers Care Volunteer Services Manager Name Role Phone Jorgito Buitrago MD Primary [...] on file Legal Sex Female 4:02 AM CARE AIDE Gender Identity Female 02/12/2023 10:45 AM [...] Plan of Treatment Not on file Insurance [facility] Care Teams Volunteer Services Manager Relationship Specialty Start Date End Date Jorgito Buitrago MD [address] [place] [address] PCP - General Family Medicine 02/07/23
--- OUTSIDE RECORDS SUMMARY | 2025-01-06 07:12 | XMS_ITS | Continuity of Care Document ---
Author Organization [facility] Address [address] [place] [address] [place] [address] Phone Care Team Providers Care Repairer Screen Crusher Name Role Phone Unavailable Unavailable Unavailable Advance Directives Directive Yes / No Effective Date File Name No Information Encounters Encounter Description Practice Location Reason(s) For Visit Diagnoses Date Provider Providers Copied on Encounter [facility], [address] [place] [address] [address], [place], [place], [id number], [place] tel:[phone] [facility] No Information [id number] No Information Family History Family Member Type Diagnosis Age At Onset No Information Payers Payer name Insurance type Covered democrat ID Authoriza tion(s) No Information Social History [...]
--- OUTSIDE RECORDS SUMMARY | 2025-01-06 07:12 | XMS_ITS | Encounter Summary ---
Author Organization [facility] Address [address] [facility] [place] [address] Care Team Providers Care Potato Pancake Frier Name Role Phone Joseph Ratliff MD Primary Care Provider [phone] Jorgito Buitrago MD Primary Care Provider + Encounter Details Date Type Department Care Team (Late Contact Info) Description 08/02/2020 [facility] Outpatient Visit EXTERNAL NON-[facility] DEPT Unknown, Provider Social History Tobacco Use Types Packs/Day Years Used Date Smoking Tobacco: Never Smokeless Tobacco: Never Alcohol Use Standard Drinks/Week Comments No 0 (1 standard drink = 0.6 oz pur e alcohol) Comments Unknown Sex and Gender Information Value Date Recorded Sex Assigned at Female 02/16/2023 11:16 AM CDT Legal Sex Female 6:19 AM 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 No / Unsure 07/23/2020 9:06 AM CONSTRUCTION TRADES CONTRACTOR documented as of this encounter Plan of Treatment Upcoming Encounters Date Type Department Care Team (Late Contact Info) Description 02/03/2025 10:40 AM CDT Procedure visit [facility] Health Neurosciences [address] [facility] [address] [place] [phone] [place] [address] [facility] [address] [place] [phone] documented as of this encounter Visit Diagnoses Not on filedocumented in this encounter Care Teams Potato Pancake Frier Relationship Specialty Start Date End Date Joseph Ratliff MD [address] [place] [phone] PCP - General Internal Medicine 06/23/14 04/03/22 Jorgito Buitrago MD [address] [place] [address] [address] [place] [address] PCP - General Family Medicine 04/04/22 documented as of this encounter
--- OUTSIDE RECORDS SUMMARY | 2025-01-06 07:12 | XMS_ITS | Encounter Summary ---
Author Organization [facility] Address [address] [facility] [place] [address] Care Team Providers Care Health Plan Specialist Name Role Phone Joseph Ratliff MD Primary Care Provider [phone] Jorgito Buitrago MD Primary Care Provider + Encounter Details Date Type Department Care Team (Late st Contact Info) Description 04/26/2018 [facility] Outpatient Visit EXTERNAL NON-[facility] DEPT Unknown, Provider Social History Tobacco Use Types Packs/Day Years Used Date Smoking Tobacco: Never Smokeless Tobacco: Never Alcohol Use Standard Drinks/Week Comments No 0 (1 standard drink = 0.6 oz pur e alcohol) Comments Unknown Sex and Gender Information Value Date Recorded Sex Assigned at Female 02/16/2023 11:16 AM CDT Legal Sex Female 6:19 AM MACHINERY ERECTOR Gender Identity Female 02/16/2023 11:16 AM CDT Sexual Orientation Not on file 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 [address] [place] [phone] [place] [address] [phone] documented as of this encounter Visit Diagnoses Not on filedocumented in this encounter Care Teams Health Plan Specialist Relationship Specialty Start Date End Date Joseph Ratliff MD [address] [place] [phone] PCP - General Internal Medicine 06/23/14 04/03/22 Jorgito Buitrago MD [address] [address] PCP - General Family Medicine 04/04/22 documented as of this encounter
--- OUTSIDE RECORDS SUMMARY | 2025-01-06 07:12 | XMS_ITS | Encounter Summary ---
Author Organization [facility] Address [address] [facility] [place] [place] [address] Care Team Providers Care Marine Engineer Name Role Phone Joseph Ratliff MD Primary Care Provider [phone] Jorgito Buitrago MD Primary Care Provider + Encounter Details Date Type Department Care Team (Late Contact Info) Description 09/06/2020 [facility] Outpatient Visit EXTERNAL NON-[facility] DEPT Unknown, Provider Social History Tobacco Use Types Packs/Day Years Used Date Smoking Tobacco: Never Smokeless Tobacco: Never Alcohol Use Standard Drinks/Week Comments No 0 (1 standard drink = 0.6 oz pur e alcohol) Comments Unknown Sex and Gender Information Value Date Recorded Sex Assigned at Female 02/16/2023 11:16 AM CDT Legal Sex Female 6:19 AM TEMPORARY DATA ENTRY CLERK Gender Identity Female 02/16/2023 11:16 AM CDT Sexual Orientation Not on file 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 Not on file Not on file documented as of this encounter Plan of Treatment Upcoming Encounters Date Type Department Care Team (Late Contact Info) Description 02/03/2025 10:40 AM CDT Procedure visit [facility] [address] [facility] [address] [place] [phone] [place] [address] [facility] [address] [phone] documented as of this encounter Visit Diagnoses Not on filedocumented in this encounter Care Teams Marine Engineer Relationship Specialty Start Date End Date Joseph Ratliff MD [address] [place] [phone] PCP - General Internal Medicine 06/23/14 04/03/22 Jorgito Buitrago MD [address] [address] PCP - General Family Medicine 04/04/22 documented as of this encounter
--- OUTSIDE RECORDS SUMMARY | 2025-01-06 07:12 | XMS_ITS | Clinical Summary ---
Author Organization [facility] [employer] Address [address] [facility] [place] [address] Care Team Providers Care Die Keeper Name Role Phone Jorgito Buitrago MD Primary Care Provider + Source Comments [facility],non-owned Affiliates and Associated Physician Practices is amultiple site organization consisting of ambulatory clinics and hospital sitesin [place], [place], [place] and [place]. This disclosure is being madepursuant to the Care Everywhere program and may not contain all information available regarding this patient. Last updated 18.[facility] [employer] Allergies No known active allergies Medications * Be aware that medications may not be up to date on this document. Alwaysverify current medications with the patient. atorvastatin (LIPITOR) 40 MG tablet Take 1 (one) tablet by mouth at bedtime Active risedronate Sodium (ACTONEL) 150 MG tablet Take 1 (one) tablet by mouth every 30 days Active B Laokpwu-M-Xbfn c Acid (SUPER B COMPLEX/FA/VIT C PO) Active Multiple Vitamins-Management Coordinator als (MULTIVITAMIN ADULT PO) Active Cholecalcifero l (VITAMIN D3) 1000 units Active Calcium Carbonate-Vit D-Min (CALCIUM 1200 PO) Active MYRBETRIQ 25 MG tablet Take 1 (one) tablet by mouth once daily 1 Active rOPINIRole (Requip) 1 MG tablet TAKE 1 TABLET BY MOUTH THREE TIMES A DAY 270 tablet 2 Active diclofenac sodium EC (Voltaren) 75 MG tablet 2 Active carbidopa-levo dopa (Sinemet) 25-100 MG tablet TAKE 2 TABLETS BY MOUTH 3 TIMES A DAY 540 tablet 3 4 Active carbidopa-levo dopa CR (Sinemet CR) 25-100 MG tablet TAKE 1 TABLET BY MOUTH EVERYDAY AT BEDTIME 90 tablet 3 5 Active rasagiline (Azilect) 1 MG tablet TAKE 1 TABLET BY MOUTH EVERY DAY 90 tablet 3 5 Active clonazePAM (KlonoPIN) 1 MG tablet TAKE 2 TABLETS BY MOUTH AT BEDTIME 60 tablet 5 5 Active pantoprazole EC (Protonix) 40 MG tablet Take 1 (one) tablet by mouth once daily 5 Active amantadine (Symmetrel) 100 MG capsule TAKE 1 CAPSULE BY MOUTH TWICE A DAY 180 capsule 3 5 Active oxyBUTYnin CR 24hr (Ditropan-XL) 10 MG tablet Take 1 (one) tablet by mouth once daily 5 Active entacapone (Comtan) 200 MG tablet TAKE 1 TABLET BY MOUTH THREE TIMES A DAY 270 tablet 3 5 Active entacapone (Comtan) 200 MG tablet TAKE 1 TABLET BY MOUTH THREE TIMES A DAY 270 tablet 3 4 025 Discontinued Active Problems Problem Noted Date Diagnosed Date Parkinson disease 06/24/2014 Encounters Date Type Department Care Team Description 12/28/[address] [phone] Forrest Fernandez MD Refill Request 11/25/2024 11:40 AM CDT Procedure visit [address] [phone] Forrest Fernandez MD Sialorrhea ; Parkinson's disease without dyskinesia or fluctuating manifestations (HCC); Gait disorder; Memory loss; Dyskinesia from Last 3 Months Family History Medical [...] AM CDT Legal Sex Female 6:19 AM SUPERVISOR COFFEE Gender Identity Female 02/16/2023 11:16 AM CDT [...] 02/03/2025 10:40 AM CDT Procedure visit [facility] [address] [facility] [address] [place] [phone] [place] [address] [facility] [address] [place] [address] Health Maintenance Due Date Last [...] patient's age to complete this topic Insurance [id number] [employer] AD[employer] PPO Care Teams Die Keeper Relationship Specialty Start Date End Date Jorgito Buitrago MD [address] [place] [phone] PCP - General Family Medicine 04/04/22
--- OUTSIDE RECORDS SUMMARY | 2025-01-06 07:12 | XMS_ITS | Clinical Summary ---
Author Organization [facility] [address] Address [address] [place] [phone] Care Team Providers Care Linux System Administrator Name Role Phone Jorgito Buitrago MD Primary [...] on file Legal Sex Female 4:02 AM DATA SECURITY ANALYST Gender Identity Female 02/12/2023 10:45 AM CDT [...] 03/30/2021 Zoster Vaccine Completed 08/06/2020, 05/28/2020 Insurance [facility] [address] [place] [address] [facility] Care Teams Linux System Administrator Relationship Specialty Start Date End Date Jorgito Buitrago MD [address] [place] [address] PCP - General Family Medicine 02/07/23
--- OUTSIDE RECORDS SUMMARY | 2025-01-06 07:12 | XMS_ITS | Encounter Summary ---
Author Organization [facility] Address [address] [facility] [place] [address] Care Team Providers Care Clock Repairer Name Role Phone Joseph Ratliff MD Primary Care Provider [phone] Jorgito Buitrago MD Primary Care Provider + Encounter Details Date Type Department Care Team (Late Contact Info) Description 11/12/2020 [facility] Outpatient Visit EXTERNAL NON-[facility] DEPT Unknown, Provider Social History Tobacco Use Types Packs/Day Years Used Date Smoking Tobacco: Never Smokeless Tobacco: Never Alcohol Use Standard Drinks/Week Comments No 0 (1 standard drink = 0.6 oz pur e alcohol) Comments Unknown Sex and Gender Information Value Date Recorded Sex Assigned at Female 02/16/2023 11:16 AM CDT Legal Sex Female 6:19 AM MARKETING SUPPORT COORDINATOR Gender Identity Female 02/16/2023 11:16 AM CDT Sexual Orientation Not on file 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 Not on file Not on file documented as of this encounter Plan of Treatment Upcoming Encounters Date Type Department Care Team (Late Contact Info) Description 02/03/2025 10:40 AM CDT Procedure visit [facility] [address] [facility] [address] [place] [phone] [place] [address] [facility] [address] [phone] documented as of this encounter Visit Diagnoses Not on filedocumented in this encounter Care Teams Clock Repairer Relationship Specialty Start Date End Date Joseph Ratliff MD [address] [place] [phone] PCP - General Internal Medicine 06/23/14 04/03/22 Jorgito Buitrago MD [address] [address] PCP - General Family Medicine 04/04/22 documented as of this encounter
--- OUTSIDE RECORDS SUMMARY | 2025-01-06 07:12 | XMS_ITS | Encounter Summary ---
Author Organization [facility] Address [address] [facility] [place] [address] Care Team Providers Care Chute Feeder Name Role Phone Joseph Ratliff MD Primary Care Provider Jorgito Buitrago MD Primary Care Provider + Encounter Details Date Type Department Care Team (Late st Contact Info) Description 09/04/2017 [facility] Outpatient Visit EXTERNAL NON-[facility] DEPT Unknown, Provider Social History Tobacco Use Types Packs/Day Years Used Date Smoking Tobacco: Never Smokeless Tobacco: Never Alcohol Use Standard Drinks/Week Comments No 0 (1 standard drink = 0.6 oz pur e alcohol) Comments Unknown Sex and Gender Information Value Date Recorded Sex Assigned at Female 02/16/2023 11:16 AM CDT Legal Sex Female 6:19 AM A AND P TECHNICIAN Gender Identity Female 02/16/2023 11:16 AM [...] Procedure visit [facility] [address] [facility] [address] [place] [phone] [place] [address] [phone] documented as of this encounter Visit Diagnoses Not on filedocumented in this encounter Care Teams Chute Feeder Relationship Specialty Start Date End Date Joseph Ratliff MD [address] [place] [phone] PCP - General Internal Medicine 06/23/14 04/03/22 Jorgito Buitrago MD [address] [address] PCP - General Family Medicine 04/04/22 documented as of this encounter
--- OUTSIDE RECORDS SUMMARY | 2025-01-06 07:12 | XMS_ITS | Encounter Summary ---
Author Organization [facility] Address [address] [place] [address] Care Team Providers Care Motor And Generator Brush Cutter Name Role Phone Joseph Ratliff MD Primary Care Provider Jorgito Buitrago MD Primary Care Provider + Encounter Details Date Type Department Care Team (Late st Contact Info) Description 08/06/2017 [facility] Outpatient Visit EXTERNAL NON-[facility] DEPT Unknown, Provider Social History Tobacco Use Types Packs/Day Years Used Date Smoking Tobacco: Never Smokeless Tobacco: Never Alcohol Use Standard Drinks/Week Comments No 0 (1 standard drink = 0.6 oz pur e alcohol) Comments Unknown Sex and Gender Information Value Date Recorded Sex Assigned at Female 02/16/2023 11:16 AM CDT Legal Sex Female 6:19 AM CORRECTIONAL FOOD SERVICE SUPERVISOR Gender Identity Female 02/16/2023 11:16 AM CDT Sexual Orientation Not on file 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 Not on file Not on file documented as of this encounter Plan of Treatment Upcoming Encounters Date Type Department Care Team (Late st Contact Info) Description 02/03/2025 10:40 AM CDT Procedure visit [facility] [address] [facility] [address] [place] [phone] [place] [address] [phone] documented as of this encounter Visit Diagnoses Not on filedocumented in this encounter Care Teams Motor And Generator Brush Cutter Relationship Specialty Start Date End Date Joseph Ratliff MD [address] [place] [phone] PCP - General Internal Medicine 06/23/14 04/03/22 Jorgito Buitrago MD [address] [address] PCP - General Family Medicine 04/04/22 documented as of this encounter
--- OUTSIDE RECORDS SUMMARY | 2025-01-06 07:12 | XMS_ITS | Encounter Summary ---
Author Organization [facility] Address [address] [facility] [place] [address] Care Team Providers Care Quality Improvement Coordinator (Rn) Name Role Phone Joseph Ratliff MD Primary Care Provider [phone] Jorgito Buitrago MD Primary Care Provider + Encounter Details Date Type Department Care Team (Late st Contact Info) Description 05/24/2018 [facility] Outpatient Visit EXTERNAL NON-[facility] DEPT Unknown, Provider Social History Tobacco Use Types Packs/Day Years Used Date Smoking Tobacco: Never Smokeless Tobacco: Never Alcohol Use Standard Drinks/Week Comments No 0 (1 standard drink = 0.6 oz pur e alcohol) Comments Unknown Sex and Gender Information Value Date Recorded Sex Assigned at Female 02/16/2023 11:16 AM CDT Legal Sex Female 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 Gender Identity Female 02/16/2023 11:16 AM CDT Sexual Orientation Not on file 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 Not on file Not on file documented as of this encounter Plan of Treatment Upcoming Encounters Date Type Department Care Team (Late st Contact Info) Description 02/03/2025 10:40 AM CDT Procedure visit [facility] [address] [facility] [address] [place] [phone] [place] [address] [phone] documented as of this encounter Visit Diagnoses Not on filedocumented in this encounter Care Teams Quality Improvement Coordinator (Rn) Relationship Specialty Start Date End Date Joseph Ratliff MD [address] [place] [phone] PCP - General Internal Medicine 06/23/14 04/03/22 Jorgito Buitrago MD [address] [address] PCP - General Family Medicine 04/04/22 documented as of this encounter
--- OUTSIDE RECORDS SUMMARY | 2025-01-06 07:12 | XMS_ITS | Encounter Summary ---
Author Organization [facility] Address [address] [facility] [place] [address] Care Team Providers Care Steel Pan Form Placing Supervisor Name Role Phone Joseph Ratliff MD Primary Care Provider [phone] Jorgito Buitrago MD Primary Care Provider + Encounter Details Date Type Department Care Team (Late st Contact Info) Description 10/14/2020 [facility] Outpatient Visit EXTERNAL NON-[facility] DEPT Unknown, Provider Social History Tobacco Use Types Packs/Day Years Used Date Smoking Tobacco: Never Smokeless Tobacco: Never Alcohol Use Standard Drinks/Week Comments No 0 (1 standard drink = 0.6 oz pur e alcohol) Comments Unknown Sex and Gender Information Value Date Recorded Sex Assigned at Female 02/16/2023 11:16 AM CDT 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 Gender Identity Female 02/16/2023 11:16 AM CDT Sexual Orientation Not on file 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 Not on file Not on file documented as of this encounter Plan of Treatment Upcoming Encounters Date Type Department Care Team (Late Contact Info) Description 02/03/2025 10:40 AM CDT Procedure visit [facility] [address] [facility] [address] [place] [phone] [place] [address] [facility] [address] [phone] documented as of this encounter Visit Diagnoses Not on filedocumented in this encounter Care Teams Steel Pan Form Placing Supervisor Relationship Specialty Start Date End Date Joseph Ratliff MD [address] [place] [phone] PCP - General Internal Medicine 06/23/14 04/03/22 Jorgito Buitrago MD [address] [address] PCP - General Family Medicine 04/04/22 documented as of this encounter
--- OUTSIDE RECORDS SUMMARY | 2025-01-06 07:12 | XMS_ITS | Clinical Summary ---
Author Organization [facility] Address [address] [place] [address] Care Team Providers Care Quality Process Auditor Name Role Phone None, Provider MD Primary [...] 11:00 AM CDT Height 154.9 cm (5' 1) 12/17/2018 11:00 AM CDT Body Mass Index [...] this topic Medical Devices Implanted Type Area Equipment Installer Device Identifier Shelf Expiration Date Model / Serial / Lot Iol [employer] - [id number] Implanted:Qty: 1 on 12/18/2018 by Mehdi Ortiz MD at [facility] Lens Right: Eye [employer] 12/21/2021 [id number] / [id number] / Insurance [employer] Care Teams Quality Process Auditor Relationship Specialty Start Date End Date None, Provider, PCP - General 12/17/18
--- OUTSIDE RECORDS SUMMARY | 2025-01-06 07:12 | XMS_ITS | Encounter Summary ---
Author Organization [facility] Address [address] [place] [address] Care Team Providers Care Sports Recruiter Name Role Phone Joseph Ratliff MD Primary Care Provider [phone] Jorgito Buitrago MD Primary Care Provider + Encounter Details Date Type Department Care Team (Late st Contact Info) Description 04/18/2018 [facility] Outpatient Visit EXTERNAL NON-[facility] DEPT Unknown, Provider Social History Tobacco Use Types Packs/Day Years Used Date Smoking Tobacco: Never Smokeless Tobacco: Never Alcohol Use Standard Drinks/Week Comments No 0 (1 standard drink = 0.6 oz pur e alcohol) Comments Unknown Sex and Gender Information Value Date Recorded Sex Assigned at Female 02/16/2023 11:16 AM CDT Legal Sex Female 6:[address] Gender Identity Female 02/16/2023 11:16 AM CDT Sexual Orientation Not on file 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 Not on file Not on file documented as of this encounter Plan of Treatment Upcoming Encounters Date Type Department Care Team (Late st Contact Info) Description 02/03/2025 10:40 AM CDT Procedure visit [facility] [address] [facility] [address] [place] [phone] [place] [address] [phone] documented as of this encounter Visit Diagnoses Not on filedocumented in this encounter Care Teams Sports Recruiter Relationship Specialty Start Date End Date Joseph Ratliff MD [address] [place] [phone] PCP - General Internal Medicine 06/23/14 04/03/22 Jorgito Buitrago MD [address] [address] PCP - General Family Medicine 04/04/22 documented as of this encounter
--- NOTE | 2025-01-06 08:14 | S_PTH ---
PATIENT: Aster Zaragoza LOC: [facility] U#:[id number] AGE/SX: 69/F ROOM: RE01/06/[address]: Iram Lopez MD : 1955 BED: DIS: 01/06/2025 SPEC #: [id number] RECD: 01/06/25 10:01 STATUS: ANGELIKA REQ #: [id number] PATRICIA: 01/06/25 08:[address]: Iram Lopez DEPT: [facility] Surgical RECD BY: Iron Danielle ENTERED: 01/06/25 10:01 SP TYPE: Surgical OTHR DR: Latasha Melgar, DO Tissues: A - Breast Biopsy Procedures: Hematoxylin and Eosin Stain Gross and Microscopic Level 4
--- NOTE | 2025-01-14 11:32 | PM.EVENT ---
Event Note Event Note Event Note: Telephone call: Patient called to c/o nipple burning. Day#8 after R breast Bx (retroareolar mass, yielding fibrocystic change). Appropriate post Bx appearance (slight bruising starting to resolve). Patient denies fevers. Recommended tylenol (she has taken this medicine before without disruption to her Parkinsons disease medications) with a followup call in 24h. Return call today if burning not relieved w tylenol. W continue to follow.
== END 2025-01-06 07:09 | disposition home or self-care (01) ==
PROVIDERS: PCP Family Medicine; Visit Provider Surgery
DX: N63.41 Unspecified lump in right breast, subareolar (principal); R92.8 Other abnormal and inconclusive findings on diagnostic imaging of breast
CPT/HCPCS: 19083; 77065; 88305; A4648

== ENCOUNTER 2025-02-18 09:21 | Emergency (ER) | payer OTHER, SELFPAY ==
[2025-02-18 09:34] VITALS: BP 120/66; PULSE 74; RESP 16; TEMP 36.9; O2SAT 100
--- NOTE | 2025-02-18 09:57 | ED.EYEPROB ---
HPI - Eye Problem General Chief complaint: Eye Problems Stated complaint: left eye irritation Time Seen by Provider: 02/18/25 09:52 Source: patient and RN notes reviewed Mode of arrival: ambulatory Limitations: no limitations History of Present Illness HPI Narrative: 70-year-old female with history of Parkinson's presents concern for irritation or left eye with some watery drainage. She reports she went to a physical therapy appointment today and the therapist told her she had drainage from her eye she should be checked out for pain [facility], the therapist had ceciliaeye a couple of weeks ago. Patient denies any vision changes. Denies injury to the eye. Her eye was not crusted shut this morning. Her symptoms started yesterday. MD chief complaint: other (drainage) Related Data Home Medications ?Medication ?Instructions ?Recorded ?Confirmed ?Last Taken ?Type amantadine HCl 100 mg tablet 100 mg PO DAILY 02/28/22 09/09/24 01/10/23 History calcium carbonate 500 mg/5 mL (as 500 mg PO DAILY 02/28/22 09/09/24 01/10/23 History calcium carb 1,250 mg/5 mL) oral suspension carbidopa 25 mg-levodopa 100 1 tablet PO .bedtime 02/28/22 09/09/24 01/10/23 History mg-entacapone 200 mg tablet carbidopa 25 mg-levodopa 100 1 tablet PO TID 02/28/22 09/09/24 01/11/23 07:30 History mg-entacapone 200 mg tablet clonazepam 1 mg tablet 2 mg PO QHS 02/28/22 09/09/24 01/10/23 History entacapone 200 mg tablet 200 mg PO TID 02/28/22 09/09/24 01/10/23 History gqdbguzf-ftyk-ytzu 8 mg-folic 400 1 tablet PO DAILY 02/28/22 09/09/24 01/10/23 History mcg-K 50 mcg-lutein 300 mcg tablet (Centrum Silver Women) vitamin B complex 1 tablet PO DAILY 02/28/22 09/09/24 01/10/23 History rasagiline 1 mg tablet 1 mg PO DAILY 02/07/23 09/09/24 Unknown History risedronate 150 mg tablet 150 mg PO MONTHLY 02/07/23 09/09/24 Unknown History polyethylene glycol 3350 17 gram 17 g PO DAILY PRN 06/18/24 09/09/24 Unknown History oral powder packet (Miralax) rimabotulinumtoxinB 2,500 unit/0.5 2,500 unit IM Q10W 06/18/24 09/09/24 Unknown History mL intramuscular solution (Myobloc) Allergies Allergy/AdvReac Type Severity Reaction Status Date / Time No Known Allergies Allergy Verified 02/18/25 09:27 Review of Systems Review of Systems: CONSTITUTIONAL: Denies malaise, chills, sweats, or fever. EYES: Denies visual changes. Reports irritation, watery discharge the left eye. ENT: Denies rhinorrhea, congestion, sinus pain, otalgia or sore throat. SKIN: Denies rash or itching. NEUROLOGIC: Denies numbness, weakness, or headache. PSYCHIATRIC: Denies anxiety or depression. All systems reviewed & are unremarkable except as noted in HPI and below PMFSH Past Medical History Medical History (Updated 02/18/25 @ 10:01 by Irene Simon NP) Debility Raynauds phenomenon Bilateral knee pain Pure hypercholesterolemia, unspecified Left shoulder pain Insomnia, unspecified OAB (overactive bladder) Parkinson disease Family History Family History Mother Asthma Diabetes mellitus Heart disease Hypertension Father Heart disease Hypertension Social History Social History (Updated 12/30/24 @ 14:58 by Destinee Barragan CMA) Smoking status: Never smoker Second hand tobacco smoke exposure: No Alcohol intake: never Substance use: never Substance use type: does not use Do You Feel Safe in your Home?: Yes Lack of Transportation: No Lack of Food: Never True Current Housing: Decline to Answer Concerned About Future Housing: Decline to Answer Difficulty Paying Gas/Electric Bills: Decline to Answer Difficulty Paying for Meds: Decline to Answer Currently Unemployed: Decline to Answer Education: Decline to Answer Difficulty w/ Childcare or Family Care: Decline to Answer Living arrangements: with family Occupation/Education: retired Gender identity (if verbalized by the patient): Female Spiritual care concerns: No Agree to blood products: Yes Comments At time of signature, agree with nursing past medical, surgical, social and family history. There is no relevant family history pertinent to the presenting complaint Exam Narrative: GENERAL: Well-appearing, well-nourished, and in no acute distress. HEAD: Normocephalic, atraumatic. EYES: PERRLA, sclera clear, and EOMI. No nystagmus. Bilateral conjunctivae and sclera clear. Small amount of drainage noted to the left eye. Upper and lower eyelid unremarkable, no periorbital edema noted ENT: Nares clear, turbinates pink, no rhinorrhea or epistaxis. Mucous membranes moist. TM pearly ortiz with sharp light reflex bilaterally; no tragal tenderness. NECK: Supple. CHEST: No respiratory distress. Speaks in full sentences. HEART: Regular rate and rhythm. SKIN: Warm, dry, no visible rash. NEURO: Alert and oriented x3. PSYCH: Normal mood and affect Course Course Emergency Course: Patient is aware of diagnosis, understands and agrees to treatment plan. Anticipatory guidance given. Patient agrees to follow-up as directed and is aware of reasons to seek care at the emergency department. Portions of this record may have been created with voice recognition software Level of Care: Express Care Visit Vital Signs Vital signs: Vital Signs Temperature 98.5 F 02/18/25 09:34 Pulse Rate 74 02/18/25 09:34 Respiratory Rate 16 02/18/25 09:34 Blood Pressure 120/66 02/18/25 09:34 Pulse Oximetry 100 02/18/25 09:34 Oxygen Delivery Room Air 02/18/25 09:34 Temperature 98.5 F 02/18/25 09:34 Pulse Rate 74 02/18/25 09:34 Respiratory Rate 16 02/18/25 09:34 Blood Pressure 120/66 02/18/25 09:34 Pulse Oximetry 100 02/18/25 09:34 Oxygen Delivery Room Air 02/18/25 09:34 Reviewed. MDM - Eye Problem MDM Narrative Medical decision making narrative: Consideration of the following conditions may be warranted for the presenting problem, they are not final diagnoses: Bacterial conjunctivitis, allergic conjunctivitis, viral conjunctivitis, foreign body, blepharitis, chalazion, hordeolum, corneal abrasion, preseptal cellulitis, orbital cellulitis. No evidence of proptosis, ophthalmoplegia, vision loss, pain with eye movement. Exam findings show no acute concerns or changes; patient is non-toxic appearing and is in no distress. Patient is appropriate for outpatient treatment and follow-up. Critical Care Time Critical Care Time Critical Care Time: No Discharge Plan Discharge Clinical Impression: Eye drainage Patient Disposition: Home Condition: Stable Instructions: How to Use Eye Drops (ED) Additional Instructions: Do not touch or rub your eye. Use a warm or cool washcloth on your eye for comfort Use eyedrops as directed Practice good handwashing and hygiene to prevent spread of infection You may take Tylenol or ibuprofen for pain Follow-up with PCP or sausage linker if condition is not improving in 2-3days. Go to the emergency room if you have pain behind your eye, pressure behind your eye, difficulty seeing, or other severe symptoms Patient Language: Maltese Prescriptions: New polymyxin B sulf-trimethoprim 10,000 unit- 1 mg/mL drops 1 drp LEFT EYE Q3H 7 Days Qty: 10 0RF Rx Instructions: while awake; do not exceed 6 doses in 24 hours No Action polyethylene glycol 3350 [Miralax] 17 gram powder in packet 17 g PO DAILY Qty: 30 0RF polyethylene glycol 3350 [Miralax] 17 gram powder in packet 17 g PO DAILY PRN clonazepam 1 mg tablet 2 mg PO QHS Rx Instructions: administer 30 minutes before bedtime amantadine HCl 100 mg tablet 100 mg PO DAILY cswqcullw-xzcteukm-thwxfaqbqh 25-100-200 mg tablet 1 tablet PO TID ahzntlprd-nystequq-oxsiznmpqu 25-100-200 mg tablet 1 tablet PO .bedtime entacapone 200 mg tablet 200 mg PO TID Rx Instructions: administer at the same time as l-dopa/carbidopa dose vitamin B complex Tablet 1 tablet PO DAILY Centrum Silver Women 8 mg iron-400 mcg-300 mcg tablet 1 tablet PO DAILY calcium carbonate 500 mg/5 mL (1,250 mg/5 mL) suspension 500 mg PO DAILY risedronate 150 mg tablet 150 mg PO MONTHLY Rx Instructions: administer at least 30 minutes before the first food or drink of the day other than water. rasagiline 1 mg tablet 1 mg PO DAILY Myobloc 2,500 unit/0.5 mL solution 2,500 unit IM Q10W diclofenac sodium 75 mg tablet,delayed release (DR/EC) 75 mg PO BID Qty: 60 5RF pantoprazole 40 mg tablet,delayed release (DR/EC) 40 mg PO QAM Qty: 90 1RF Rx Instructions: Take 1 tablet by mouth daily. ropinirole 1 mg tablet 1 mg PO TID Qty: 270 3RF atorvastatin 40 mg tablet See Rx Instructions .ROUTE .COMPLEX Qty: 90 3RF Dose Instruction: TAKE 1 TABLET BY MOUTH EVERY DAY Rx Instructions: TAKE 1 TABLET BY MOUTH EVERY DAY Follow-up/Referrals: Latasha Melgar DO [Primary Care Provider] - Time of Disposition: 10:02
== END 2025-02-18 10:04 | disposition home or self-care (01) ==
PROVIDERS: Emergency Provider Nurse Practitioner; PCP Family Medicine
DX: H57.89 Other specified disorders of eye and adnexa (principal); I73.00 Raynaud's syndrome without gangrene; E78.00 Pure hypercholesterolemia, unspecified; G20.A1 Parkinson's disease without dyskinesia, without mention of fluctuations
CPT/HCPCS: 99213; G0463

== ENCOUNTER 2025-06-22 17:09 | Emergency (ER) | payer OTHER, SELFPAY ==
--- NOTE | ~2025-06-22 | CT_ITS ---
EXAMINATION: 1. . CT cervical spine wo con DATE: 06/22/2025 17:29 INDICATION: Fall TECHNIQUE: 1. Computed tomography (CT) of the cervical spine were performed without intravenous contrast. Sagittal and coronal reconstructions of both regions were obtained. Automated exposure control and iterative reconstruction technique were employed. The dose-length product was 99.89 mGy-cm. COMPARISON: None. FINDINGS: Straightening of the normal cervical lordosis. No spondylolisthesis or facet subluxation. Vertebral body heights are normal. No acute fracture. Severe disc height loss at C4-C5 and moderate disc height loss at C6-C7. Mild disc height loss at C5-C6 and C7-T1. Multilevel uncovertebral osteoarthritis, severe bilaterally at C5-C6 and on the left at C6-C7, moderate severity on the right at C6-C7 on the right at C3-C4 and bilaterally at C6-C7 and mild with remaining cervical levels. There is also multilevel moderate bilateral cervical facet osteoarthritis. The facet uncovertebral osteoarthritis contributes to mild neural foraminal stenosis on the right at C3-C4 and bilaterally at C4-C5 through C6-C7. Mild disc bulge at C3-C4 and small posterior disc osteophyte complexes at C4-C5, C5-C6 and C6-C7 contributing to multilevel mild central canal stenosis. Cervical soft tissues are unremarkable. Visualized apices of the lungs are clear. IMPRESSION: 1. Severe cervical spondylosis. Reviewed, dictated and finalized at location A. ERNMAKER HAND
--- NOTE | ~2025-06-22 | CT_ITS ---
EXAMINATION: CT brain wo con, 06/22/2025 17:22 ANIMAL CARE SUPERVISOR HISTORY: fall COMPARISON: No comparisons available. Technique: Axial images obtained of the brain without contrast. One or more of the following dose reduction techniques were used: automated exposure control, adjustment of the mA and/or kV according to patient size, use of iterative reconstruction technique. Findings: No acute infarct or parenchymal hemorrhage. No abnormal mass or mass effect. No midline shift. No extra-axial fluid collections. No hydrocephalus. Mastoid air cells unremarkable. Sinuses and orbits unremarkable. No acute fracture. No significant facial or scalp soft tissue swelling evident. No radiopaque foreign body is seen. Impression: 1.No acute intracranial abnormality. Reviewed, dictated and finalized at location P. AL CARE SUPERVISOR Impression: 1.No acute intracranial abnormality.
[2025-06-22 17:14] VITALS: BP 105/51; PULSE 83; RESP 16; TEMP 36.4; O2SAT 99
--- NOTE | 2025-06-22 18:13 | ED.WOUNDLAC ---
HPI - Wound/Laceration General Chief Complaint: Wound/Laceration Stated Complaint: wound Time Seen by Provider: 06/22/25 17:19 History of Present Illness HPI narrative: [age] year old female history of Parkinson's presents to the ER complaining of an injury. States she was walking up the stairs, she fell landing on her head. Denies LOC or AMS. Denies vision or hearing changes. Experience some laceration to left brow. Unknown last tetanus. Denies taking anticoagulants Related Data Home Medications ?Medication ?Instructions ?Recorded ?Confirmed ?Last Taken ?Type amantadine HCl 100 mg tablet 100 mg PO DAILY 02/28/22 03/12/25 01/10/23 History calcium carbonate 500 mg/5 mL (as 500 mg PO DAILY 02/28/22 03/12/25 01/10/23 History calcium carb 1,250 mg/5 mL) oral suspension carbidopa 25 mg-levodopa 100 1 tablet PO .bedtime 02/28/22 03/12/25 01/10/23 History mg-entacapone 200 mg tablet carbidopa 25 mg-levodopa 100 1 tablet PO TID 02/28/22 03/12/25 01/11/23 07:30 History mg-entacapone 200 mg tablet clonazepam 1 mg tablet 2 mg PO QHS 02/28/22 03/12/25 01/10/23 History entacapone 200 mg tablet 200 mg PO TID 02/28/22 03/12/25 01/10/23 History qiwixigu-gkak-wziv 8 mg-folic 400 1 tablet PO DAILY 02/28/22 03/12/25 01/10/23 History mcg-K 50 mcg-lutein 300 mcg tablet (Centrum Silver Women) vitamin B complex 1 tablet PO DAILY 02/28/22 03/12/25 01/10/23 History rasagiline 1 mg tablet 1 mg PO DAILY 02/07/23 03/12/25 Unknown History risedronate 150 mg tablet 150 mg PO MONTHLY 02/07/23 03/12/25 Unknown History polyethylene glycol 3350 17 gram 17 g PO DAILY PRN 06/18/24 03/12/25 Unknown History oral powder packet (Miralax) rimabotulinumtoxinB 2,500 unit/0.5 2,500 unit IM Q10W 06/18/24 03/12/25 Unknown History mL intramuscular solution (Myobloc) Allergies Allergy/AdvReac Type Severity Reaction Status Date / Time No Known Allergies Allergy Verified 06/22/25 17:09 Review of Systems Review of Systems: All systems reviewed & are unremarkable except as noted in HPI and below PMFSH Past Medical History Medical History Debility Raynauds phenomenon Bilateral knee pain Pure hypercholesterolemia, unspecified Left shoulder pain Insomnia, unspecified OAB (overactive bladder) Parkinson disease Family History Family History Mother Asthma Diabetes mellitus Heart disease Hypertension Father Heart disease Hypertension Social History Social History Smoking status: Never smoker Second hand tobacco smoke exposure: No Alcohol intake: never Substance use: never Substance use type: does not use Lack of Transportation: No Lack of Food: Never True Current Housing: Decline to Answer Concerned About Future Housing: Decline to Answer Difficulty Paying Gas/Electric Bills: Decline to Answer Difficulty Paying for Meds: Decline to Answer Currently Unemployed: Decline to Answer Education: Decline to Answer Difficulty w/ Childcare or Family Care: Decline to Answer Living arrangements: with family Occupation/Education: retired Gender identity (if verbalized by the patient): Female Spiritual care concerns: No Agree to blood products: Yes Exam Const: General: healthy appearing, no acute distress and alert Orientation/consciousness: patient oriented x3 Limitations: no limitations HENMT: Head: laceration Other: 5 cm laceration to left brow Eyes: Conjunctivae: conjunctivae normal Pupils: Equal, round and reactive pupils present EOM: EOMs intact bilaterally Resp: Effort & Inspection: normal respiratory effort Auscultation: clear to auscultation bilaterally Cardio: Rate: regular rate Rhythm: regular rhythm Skin: General skin exam: normal color Neuro: General: patient oriented x3, moves all extremities and CN's II-XI intact bilaterally Speech: normal speech Gait exam (Neuro): Normal gait present Extrem: General: normal to inspection Psych: Mental Status: mental status grossly normal Affect: normal affect Attitude: cooperative Course Vital Signs Vital signs: Vital Signs Temperature 36.4 C 06/22/25 17:14 Pulse Rate 83 06/22/25 17:14 Respiratory Rate 16 06/22/25 17:14 Blood Pressure 105/51 L 06/22/25 17:14 Pulse Oximetry 99 06/22/25 17:14 Oxygen Delivery Room Air 06/22/25 17:14 Temperature 36.4 C 06/22/25 17:14 Pulse Rate 83 06/22/25 17:14 Respiratory Rate 16 06/22/25 17:14 Blood Pressure 105/51 L 06/22/25 17:14 Pulse Oximetry 99 06/22/25 17:14 Oxygen Delivery Room Air 06/22/25 17:14 Procedures Laceration Laceration 1: Date: 06/22/25 Time: 18:18 Site: scalp Side (If applicable): left Size (cm): 5.5 Description: linear Depth: simple, single layer Local Anesthetic: lidocaine 1% and with epi Amount of anesthesia used (mL): 10 ====== Skin Level ====== Skin layer closed with: nylon Size (cm): 6-0 Number of sutures: 11 Technique: simple, interrupted ====== Subcutaneous Layer ====== ====== Muscle Layer ====== ====== Tendon Layer ====== MDM Differential Diagnosis Differential Diagnosis: Laceration, contusion, abrasion, subdural hematoma, skull fracture Imaging Data Radiologist's impression: ITS Impressions Head CT 06/22/25 17:29 Impression: 1.No acute intracranial abnormality. Discharge Plan Discharge Clinical Impression: Laceration of scalp, Contusion of face Patient Disposition: Home Condition: Stable Instructions: Antibiotic Form, Laceration (ED) Additional Instructions: 11 sutures were placed to the left side her forehead. These can be removed in 7 days. Recommend going urgent care or your PCP. Monitor for signs of infection which include redness, swelling, purulent drainage, increasing pain. May wash with soap and water. Take Tylenol ibuprofen as needed for discomfort. Patient Language: Togolese Prescriptions: No Action polymyxin B sulf-trimethoprim 10,000 unit- 1 mg/mL drops 1 drp LEFT EYE Q3H 7 Days Qty: 10 0RF Rx Instructions: while awake; do not exceed 6 doses in 24 hours polyethylene glycol 3350 [Miralax] 17 gram powder in packet 17 g PO DAILY Qty: 30 0RF polyethylene glycol 3350 [Miralax] 17 gram powder in packet 17 g PO DAILY PRN clonazepam 1 mg tablet 2 mg PO QHS Rx Instructions: administer 30 minutes before bedtime amantadine HCl 100 mg tablet 100 mg PO DAILY bqweoxwpi-asqmsslx-isvchytqfq 25-100-200 mg tablet 1 tablet PO TID pnhnnkmlh-cyniearg-txfsluooqm 25-100-200 mg tablet 1 tablet PO .bedtime entacapone 200 mg tablet 200 mg PO TID Rx Instructions: administer at the same time as l-dopa/carbidopa dose vitamin B complex Tablet 1 tablet PO DAILY Centrum Silver Women 8 mg iron-400 mcg-300 mcg tablet 1 tablet PO DAILY calcium carbonate 500 mg/5 mL (1,250 mg/5 mL) suspension 500 mg PO DAILY risedronate 150 mg tablet 150 mg PO MONTHLY Rx Instructions: administer at least 30 minutes before the first food or drink of the day other than water. rasagiline 1 mg tablet 1 mg PO DAILY Myobloc 2,500 unit/0.5 mL solution 2,500 unit IM Q10W pantoprazole 40 mg tablet,delayed release (DR/EC) 40 mg PO QAM Qty: 90 1RF Rx Instructions: Take 1 tablet by mouth daily. ropinirole 1 mg tablet 1 mg PO TID Qty: 270 3RF atorvastatin 40 mg tablet See Rx Instructions .ROUTE .COMPLEX Qty: 90 3RF Dose Instruction: TAKE 1 TABLET BY MOUTH EVERY DAY Rx Instructions: TAKE 1 TABLET BY MOUTH EVERY DAY diclofenac sodium 75 mg tablet,delayed release (DR/EC) 75 mg PO BID Qty: 60 5RF Follow-up/Referrals: Latasha Melgar DO [Primary Care Provider, Family Practice] Time of Disposition: 18:28
[2025-06-22] MEDS: TETANUS,DIPHTHERIA,AC PERTUSSIS ADULT (0.5 ML) BOOSTRIX IM (18:20)
--- OUTSIDE RECORDS SUMMARY | 2025-06-22 18:24 | XMS_ITS | Clinical Summary ---
Author Organization [facility] Address [address] [place] [address] Care Team Providers Care Graphics Coordinator Name Role Phone None, Provider MD Primary [...] Scan (General) 2022 COVID-19 Vaccine ( - 2024-2 6 season) 2025 Influenza Adult (#1) 2025 RSV Immunization or 60+ Years (1 - 1-dose 75+ series) 02/07/2032 Hepatitis A Vaccines Aged Out No long er eligible based on patient's age to complete this topic Meningococcal B Vaccine Aged Out No l onger eligible based on patient's age to complete this topic Meningococcal Vaccine Aged Out No karen valentine eligible based on patient's age to complete this topic RSV Immunizations Under 20 Months Aged Out No longer eligible based on patient's age to complete this topic Medical Devices Implanted Type Area French Weaver Device Identifier Shelf Expiration Date Model / Serial / Lot Iol [employer] - [id number] Implanted:Qty: 1 on 12/18/2018 by Mehdi Ortiz MD at [facility] Lens Right: Eye [employer] 12/21/2021 [id number] / [id number] / Insurance CIELO HACKETT Care Teams Graphics Coordinator Relationship Specialty Start Date End Date None, Provider, PCP - General 12/17/18
--- OUTSIDE RECORDS SUMMARY | 2025-06-22 18:24 | XMS_ITS | Encounter Summary ---
Author Organization [facility] Address [address] [place] [address] Care Team Providers Care Sales Data Analyst Name Role Phone Joseph Ratliff MD Primary Care Provider [phone] Jorgito Buitrago MD Primary Care Provider + Encounter Details Date Type Department Care Team (Late st Contact Info) Description 11/12/[address] [facility] Outpatient Visit EXTERNAL [facility] DEPT Unknown, Provider Social History Tobacco Use Types Packs/Day Years Used Date Smoking Tobacco: Never Smokeless Tobacco: Never Alcohol Use Standard Drinks/Week Comments No 0 (1 standard drink = 0.6 oz pur e alcohol) Comments Unknown Sex and Gender Information Value Date Recorded Sex Assigned at Female 02/16/2023 11:16 AM CDT Legal Sex Female 6:19 AM PICK UP Gender Identity Female 02/16/2023 11:16 AM CDT Sexual Orientation Not on file 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 Not on file Not on file documented as of this encounter Plan of Treatment Upcoming Encounters Date Type Department Care Team (Late Contact Info) Description 06/23/2025 10:40 AM PICK UP Procedure visit [facility] [address] [facility] [address] [place] [phone] [place] [address] [facility] [address] [phone] documented as of this encounter Visit Diagnoses Not on filedocumented in this encounter Care Teams Sales Data Analyst Relationship Specialty Start Date End Date Joseph Ratliff MD [address] [place] [phone] PCP - General Internal Medicine 06/23/14 04/03/22 Jorgito Buitrago MD [address] [address] PCP - General Family Medicine 04/04/22 documented as of this encounter
--- OUTSIDE RECORDS SUMMARY | 2025-06-22 18:24 | XMS_ITS | Encounter Summary ---
Author Organization [facility] Address [address] [place] [address] Care Team Providers Care Internet Developer Name Role Phone Joseph Ratliff MD Primary Care Provider [phone] Jorgito Buitrago MD Primary Care Provider + Encounter Details Date Type Department Care Team (Late st Contact Info) Description 09/06/2020 [facility] Outpatient Visit EXTERNAL NON-[facility] DEPT Unknown, Provider Social History Tobacco Use Types Packs/Day Years Used Date Smoking Tobacco: Never Smokeless Tobacco: Never Alcohol Use Standard Drinks/Week Comments No 0 (1 standard drink = 0.6 oz pur e alcohol) Comments Unknown Sex and Gender Information Value Date Recorded Sex Assigned at Female 02/16/2023 11:16 AM CDT Legal Sex Female 6:19 AM DURABILITY TECHNICIAN Gender Identity Female 02/16/2023 11:16 AM CDT Sexual Orientation Not on file 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 Not on file Not on file documented as of this encounter Plan of Treatment Upcoming Encounters Date Type Department Care Team (Late Contact Info) Description 06/23/2025 10:40 AM DURABILITY TECHNICIAN Procedure visit [facility] [address] [facility] [address] [place] [phone] [place] [address] [facility] [address] [phone] documented as of this encounter Visit Diagnoses Not on filedocumented in this encounter Care Teams Internet Developer Relationship Specialty Start Date End Date Joseph Ratliff MD [address] [place] [phone] PCP - General Internal Medicine 06/23/14 04/03/22 Jorgito Buitrago MD [address] [address] PCP - General Family Medicine 04/04/22 documented as of this encounter
--- OUTSIDE RECORDS SUMMARY | 2025-06-22 18:24 | XMS_ITS | Clinical Summary ---
Author Organization [facility] Address [address] [facility] [place] [place] [address] Care Team Providers Care Glass Rolling Machine Operator Name Role Phone Jorgito Buitrago MD Primary Care Provider + Source Comments [facility],non-owned Affiliates and Associated Physician Practices is amultiple site organization consisting of ambulatory clinics and hospital sitesin [place], [place], [place] and [place]. This disclosure is being madepursuant to the Care Everywhere program and may not contain all information available regarding this patient. Last updated 18.[facility] [email or web address] Allergies No known active allergies Medications * Be aware that medications may not be up to date on this document. Alwaysverify current medications with the patient. atorvastatin (LIPITOR) 40 MG tablet Take 1 (one) tablet by mouth at bedtime Active risedronate Sodium (ACTONEL) 150 MG tablet Take 1 (one) tablet by mouth every 30 days Active B Wwddvex-Z-Zgdqo Acid (SUPER B COMPLEX/FA/VIT C PO) Active [...] EC (Voltaren) 75 MG tablet 07/03/2022 Active carbidopa-levod opa CR (Sinemet CR) 25-100 MG tablet TAKE 1 TABLET BY MOUTH EVERYDAY AT BEDTIME 90 tablet 3 08/05/2024 Active rasagiline (Azilect) 1 MG tablet TAKE 1 TABLET BY MOUTH EVERY DAY 90 tablet 3 08/06/2024 Active pantoprazole EC (Protonix) 40 MG tablet Take 1 (one) tablet by mouth once daily 08/21/2024 Active amantadine (Symmetrel) 100 MG capsule TAKE 1 CAPSULE BY MOUTH TWICE A DAY 180 capsule 3 10/01/2024 Active oxyBUTYnin CR 24hr (Ditropan-XL) 10 MG tablet Take 1 (one) tablet by mouth once daily 11/07/2024 Active entacapone (Comtan) 200 MG tablet TAKE 1 TABLET BY MOUTH THREE TIMES A DAY 270 tablet 3 12/29/2024 Active carbidopa-levod opa (Sinemet) 25-100 MG tablet TAKE 2 TABLETS BY MOUTH 3 TIMES A DAY 540 tablet 3 02/02/2025 Active clonazePAM (KlonoPIN) 1 MG tablet TAKE 2 TABLETS BY MOUTH AT BEDTIME 60 tablet 5 03/12/2025 Active Active Problems Problem Noted Date Diagnosed Date Parkinson disease 06/24/2014 Encounters Date Type Department Care Team Description 04/14/2025 10:40 AM CDT Procedure visit [address] [address] Forrest Fernandez MD Sialorrhea ; Parkinson's disease without dyskinesia or fluctuating manifestations (HCC); Gait disorder; Dyskinesia; Memory loss from Last 3 Months Family History Medical [...] AM CDT Legal Sex Female 6:19 AM LEATHER HEEL BREASTER Gender Identity Female 02/16/2023 11:16 AM CDT [...] - - Weight 55.8 kg (123 lb) 04/14/2025 10:41 AM CDT Height 154.9 cm (5' 1) 04/14/2025 10:41 AM CDT Body Mass Index 23.24 04/14/2025 10:41 AM CDT Plan of Treatment Upcoming Encounters Date Type Department Care Team (Late st Contact Info) Description 06/23/2025 10:40 AM LEATHER HEEL BREASTER Procedure visit [facility] [address] [facility] [address] [place] [address] [place] [address] [phone] Health Maintenance Due Date Last Done Comments BONE DENSITY TESTING 1955 COLOGUARD (AGES 45-75) - COLON CA SCREENING 1957 COLON MONITORING 1957 COLONOSCOPY - COLON CA SCREENING 1957 CT COLONOGRAPHY - COLON CA SCREENING 1957 Colorectal Cancer Screening 1957 FIT - COLON CA SCREENING 1957 FLEX SIG - COLON CA SCREENING 1957 MAMMOGRAM 1957 MEDICARE AWV 12 MONTHS 1957 HEPATITIS C SCREENING 02/02/1975 DTAP/TDAP/TD VACCINES (1 - Tdap) 02/07/1976 PNEUMOCOCCAL VACCINE 50+ (1 of 1 - PCV) 2007 Respiratory Syncytial Virus (RSV) Vaccine Pt: or over 60 yrs (1 - Risk 50-74 years 1-dose series) 2007 ZOSTER VACCINE (1 of 2) 2007 DEPRESSION SCREENING 07/09/2024 COVID-19 VACCINE ( season) 2025 06/29/2023, 08/01/2022, 05/18/2021, Additional history exists INFLUENZA VACCINE (#1) 2025 , 05/12/2020, 04/20/2014 HEPATITIS B VACCINE Aged Out No longe r eligible based on patient's age to complete this topic HIB VACCINE Aged Out No longer eligi ble based on patient's age to complete this topic HPV VACCINE Aged Out No longer eligi ble based on patient's age to complete this topic MENINGOCOCCAL (Group B) VACCINE SHARED DECISION-MAKING Aged Out No longer eligible based on patient's age to complete this topic MENINGOCOCCAL GROUPS A/C/Y/W VACCINE Aged Out No longer eligible based on patient's age to complete this topic [place] [address] [employer] [facility] Care Address: [address] [address] SELF PAY NO INSURANCE Member Subscriber Plan / Payer (Ef fective for All Dates) Name:Aster Goodman Member ID:Not on file Relation to Subscriber:Not on file Name:ASTER GOODMAN Subscriber ID:Not on file (Home) Address: [address] [place], [place] [address] [address] Payer ID:Not on file Group ID:Not on file Type:Self Pay Address: [place], [place] Care Teams Glass Rolling Machine Operator Relationship Specialty Start Date End Date Jorgito Buitrago MD [address] [phone] PCP - General Family Medicine 04/04/22
--- OUTSIDE RECORDS SUMMARY | 2025-06-22 18:24 | XMS_ITS | Encounter Summary ---
Author Organization [facility] Address [address] [place] [address] Care Team Providers Care Car Rental Manager Name Role Phone Joseph Ratliff MD Primary Care Provider [phone] Jorgito Buitrago MD Primary Care Provider + Encounter Details Date Type Department Care Team (Late st Contact Info) Description 04/18/2018 [facility] Outpatient Visit EXTERNAL NON-[facility] DEPT Unknown, Provider Social History Tobacco Use Types Packs/Day Years Used Date Smoking Tobacco: Never Smokeless Tobacco: Never Alcohol Use Standard Drinks/Week Comments No 0 (1 standard drink = 0.6 oz pur e alcohol) Comments Unknown Sex and Gender Information Value Date Recorded Sex Assigned at Female 02/16/2023 11:16 AM CDT Legal Sex Female 6:19 AM VAULT PERSON Gender Identity Female 02/16/2023 11:16 AM CDT Sexual Orientation Not on file 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 Not on file Not on file documented as of this encounter Plan of Treatment Upcoming Encounters Date Type Department Care Team (Late st Contact Info) Description 06/23/2025 10:40 AM VAULT PERSON Procedure visit [facility] [address] [facility] [address] [place] [phone] [place] [address] [phone] documented as of this encounter Visit Diagnoses Not on filedocumented in this encounter Care Teams Car Rental Manager Relationship Specialty Start Date End Date Joseph Ratliff MD [address] [place] [phone] PCP - General Internal Medicine 06/23/14 04/03/22 Jorgito Buitrago MD [address] [address] PCP - General Family Medicine 04/04/22 documented as of this encounter
--- OUTSIDE RECORDS SUMMARY | 2025-06-22 18:24 | XMS_ITS | Encounter Summary ---
Author Organization [facility] Address [address] [place] [address] Care Team Providers Care Vaccine Manager Name Role Phone Joseph Ratliff MD Primary Care Provider [phone] Jorgito Buitrago MD Primary Care Provider + Encounter Details Date Type Department Care Team (Late st Contact Info) Description 04/26/2018 [facility] Outpatient Visit EXTERNAL NON-[facility] DEPT Unknown, Provider Social History Tobacco Use Types Packs/Day Years Used Date Smoking Tobacco: Never Smokeless Tobacco: Never Alcohol Use Standard Drinks/Week Comments No 0 (1 standard drink = 0.6 oz pur e alcohol) Comments Unknown Sex and Gender Information Value Date Recorded Sex Assigned at Female 02/16/2023 11:16 AM CDT Legal Sex Female 6:19 AM CATTLE DRIVER Gender Identity Female 02/16/2023 11:16 AM CDT Sexual Orientation Not on file 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 Not on file Not on file documented as of this encounter Plan of Treatment Upcoming Encounters Date Type Department Care Team (Late st Contact Info) Description 06/23/2025 10:40 AM CATTLE DRIVER Procedure visit [facility] [address] [facility] [address] [place] [phone] [place] [address] [phone] documented as of this encounter Visit Diagnoses Not on filedocumented in this encounter Care Teams Vaccine Manager Relationship Specialty Start Date End Date Joseph Ratliff MD [address] [place] [phone] PCP - General Internal Medicine 06/23/14 04/03/22 Jorgito Buitrago MD [address] [address] PCP - General Family Medicine 04/04/22 documented as of this encounter
--- OUTSIDE RECORDS SUMMARY | 2025-06-22 18:24 | XMS_ITS | Clinical Summary ---
Author Organization [facility] [address] Address [address] [place] [phone] Care Team Providers Care Facility Technician Name Role Phone Jorgito Buitrago MD Primary [...] on file Legal Sex Female 4:02 AM REED MAKER Gender Identity Female 02/12/2023 10:45 AM CDT [...] Visit 65+ 2022 Covid-19 Vaccine (5 - 2024-2 6 season) 2025 08/01/2022, 05/18/2021, 10/17/2020, Additional history exists Influenza Vaccine (#1) 2025 , 05/12/2020, 04/20/2014 DTaP/Tdap/Td Vaccine (2 - Td or Tdap) 03/30/2031 03/30/2021 Zoster Vaccine Completed 08/06/2020, 05/28/2020 Insurance [employer] [address] [place] [address] [employer] [place] [address] Care Teams Facility Technician Relationship Specialty Start Date End Date Jorgito Buitrgao MD PCP - General Family Medicine 02/07/23
--- OUTSIDE RECORDS SUMMARY | 2025-06-22 18:24 | XMS_ITS | Encounter Summary ---
Author Organization [facility] Address [address] [facility] [place] [address] Care Team Providers Care Pipe Bender Name Role Phone Joseph Ratliff MD Primary Care Provider [phone] Jogrito Buitrago MD Primary Care Provider + Encounter Details Date Type Department Care Team (Late Contact Info) Description 08/02/2020 [facility] Outpatient Visit EXTERNAL [...] AM CDT Legal Sex Female 6:19 AM KEYBOARD ACTION ASSEMBLER Gender Identity Female 02/16/2023 11:16 AM CDT [...] COVID-19? No / Unsure 07/23/2020 9:06 AM KEYBOARD ACTION ASSEMBLER documented as of this encounter Plan of Treatment Upcoming Encounters Date Type Department Care Team (Late Contact Info) Description 06/23/2025 10:40 AM KEYBOARD ACTION ASSEMBLER Procedure visit [facility] [address] [facility] [address] [place] [phone] [place] [address] [facility] [address] [place] [address] documented as of this encounter Visit Diagnoses Not on filedocumented in this encounter Care Teams Pipe Bender Relationship Specialty Start Date End Date Joseph Ratliff MD [address] [place] [phone] PCP - General Internal Medicine 06/23/14 04/03/22 Jorgito Buitrago MD [address] [place] [address] [address] [place] [address] PCP - General Family Medicine 04/04/22 documented as of this encounter
--- OUTSIDE RECORDS SUMMARY | 2025-06-22 18:24 | XMS_ITS | Encounter Summary ---
Author Organization [facility] Address [address] [facility] [place] [address] Care Team Providers Care Geographic Analyst Name Role Phone Joseph Ratliff MD Primary Care Provider [phone] Jorgito Buitrago MD Primary Care Provider + Encounter Details Date Type Department Care Team (Late st Contact Info) Description 10/14/2020 [facility] Outpatient Visit EXTERNAL NON-[facility] DEPT Unknown, Provider Social History Tobacco Use Types Packs/Day Years Used Date Smoking Tobacco: Never Smokeless Tobacco: Never Alcohol Use Standard Drinks/Week Comments No 0 (1 standard drink = 0.6 oz pur e alcohol) Comments Unknown Sex and Gender Information Value Date Recorded Sex Assigned at Female 02/16/2023 11:16 AM CDT Legal Sex Female 6:19 AM WHOLESALE ACCOUNT EXECUTIVE Gender Identity Female 02/16/2023 11:16 AM CDT Sexual Orientation Not on file 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 Not on file Not on file documented as of this encounter Plan of Treatment Upcoming Encounters Date Type Department Care Team (Late Contact Info) Description 06/23/2025 10:40 AM WHOLESALE ACCOUNT EXECUTIVE Procedure visit [facility] [address] [facility] [address] [place] [phone] [place] [address] [facility] [address] [phone] documented as of this encounter Visit Diagnoses Not on filedocumented in this encounter Care Teams Geographic Analyst Relationship Specialty Start Date End Date Joseph Ratliff MD [address] [place] [phone] PCP - General Internal Medicine 06/23/14 04/03/22 Jorgito Buitrago MD [address] [address] PCP - General Family Medicine 04/04/22 documented as of this encounter
--- OUTSIDE RECORDS SUMMARY | 2025-06-22 18:24 | XMS_ITS | Clinical Summary ---
Author Organization [employer] [facility] Address [address] [place] [address] Care Team Providers Care Yarn Packer Name Role Phone No, Pcp DIRECTOR OF ADMISSIONS Primary Care Provider Unavailabl e Social History Tobacco Use Types Packs/Day Years Used Date Smoking Tobacco: Never Assessed Comments Unknown Sex and Gender Information Value Date Recorded Sex Assigned at Not on file Legal Sex Female 1:17 PM EST Gender Identity Not on file Sexual Orientation Not on file Plan of Treatment Not on file Medical Devices Not on file Care Teams Yarn Packer Relationship Specialty Start Date End Date No, Pcp, DIRECTOR OF ADMISSIONS N/A Do not use PCP - General Family Medicine 08/15/20
--- OUTSIDE RECORDS SUMMARY | 2025-06-22 18:24 | XMS_ITS | Encounter Summary ---
Author Organization [facility] Address [address] [facility] [place] [address] Care Team Providers Care Bridge Ironworker Name Role Phone Joseph Ratliff MD Primary Care Provider Jorgito Buitrago MD Primary Care Provider + Encounter Details Date Type Department Care Team (Late st Contact Info) Description 05/24/2018 [facility] Outpatient Visit EXTERNAL NON-[facility] DEPT Unknown, Provider Social History Tobacco Use Types Packs/Day Years Used Date Smoking Tobacco: Never Smokeless Tobacco: Never Alcohol Use Standard Drinks/Week Comments No 0 (1 standard drink = 0.6 oz pur e alcohol) Comments Unknown Sex and Gender Information Value Date Recorded Sex Assigned at Female 02/16/2023 11:16 AM CDT Legal Sex Female 6:19 AM BRAID MAKER Gender Identity Female 02/16/2023 11:16 AM CDT Sexual Orientation Not on file 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 Not on file Not on file documented as of this encounter Plan of Treatment Upcoming Encounters Date Type Department Care Team (Late st Contact Info) Description 06/23/2025 10:40 AM BRAID MAKER Procedure visit [facility] [address] [facility] [address] [place] [phone] [place] [address] [phone] documented as of this encounter Visit Diagnoses Not on filedocumented in this encounter Care Teams Bridge Ironworker Relationship Specialty Start Date End Date Joseph Ratliff MD [address] [place] [phone] PCP - General Internal Medicine 06/23/14 04/03/22 Jorgito Buitrago MD [address] [address] PCP - General Family Medicine 04/04/22 documented as of this encounter
--- OUTSIDE RECORDS SUMMARY | 2025-06-22 18:24 | XMS_ITS | Encounter Summary ---
Author Organization [facility] Address [address] [facility] [place] [address] Care Team Providers Care Head Of Commission Department Name Role Phone Joseph Ratliff MD Primary Care Provider [phone] Jorgito Buitrago MD Primary Care Provider + Encounter Details Date Type Department Care Team (Late st Contact Info) Description 09/04/2017 [facility] Outpatient Visit EXTERNAL NON-[facility] DEPT Unknown, Provider Social History Tobacco Use Types Packs/Day Years Used Date Smoking Tobacco: Never Smokeless Tobacco: Never Alcohol Use Standard Drinks/Week Comments No 0 (1 standard drink = 0.6 oz pur e alcohol) Comments Unknown Sex and Gender Information Value Date Recorded Sex Assigned at Female 02/16/2023 11:16 AM CDT Legal Sex Female 6:19 AM GRAVEL HAULER Gender Identity Female 02/16/2023 11:16 AM CDT Sexual Orientation Not on file 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 Not on file Not on file documented as of this encounter Plan of Treatment Upcoming Encounters Date Type Department Care Team (Late st Contact Info) Description 06/23/2025 10:40 AM GRAVEL HAULER Procedure visit [facility] [address] [facility] [address] [place] [phone] [place] [address] [phone] documented as of this encounter Visit Diagnoses Not on filedocumented in this encounter Care Teams Head Of Commission Department Relationship Specialty Start Date End Date Joseph Ratliff MD [address] [place] [phone] PCP - General Internal Medicine 06/23/14 04/03/22 Jorgito Buitrago MD [address] [address] PCP - General Family Medicine 04/04/22 documented as of this encounter
--- OUTSIDE RECORDS SUMMARY | 2025-06-22 18:24 | XMS_ITS | Encounter Summary ---
Author Organization [facility] Address [address] [facility] [place] [address] Care Team Providers Care Hot Top Liner Name Role Phone Joseph Ratliff MD Primary Care Provider Jorgito Buitrago MD Primary Care Provider + Encounter Details Date Type Department Care Team (Late st Contact Info) Description 08/06/2017 [facility] Outpatient Visit EXTERNAL NON-[facility] DEPT Unknown, Provider Social History Tobacco Use Types Packs/Day Years Used Date Smoking Tobacco: Never Smokeless Tobacco: Never Alcohol Use Standard Drinks/Week Comments No 0 (1 standard drink = 0.6 oz pur e alcohol) Comments Unknown Sex and Gender Information Value Date Recorded Sex Assigned at Female 02/16/2023 11:16 AM CDT Legal Sex Female 6:19 AM HEALTH CARE RECRUITER Gender Identity Female 02/16/2023 11:16 AM CDT Sexual Orientation Not on file 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 Not on file Not on file documented as of this encounter Plan of Treatment Upcoming Encounters Date Type Department Care Team (Late st Contact Info) Description 06/23/2025 10:40 AM HEALTH CARE RECRUITER Procedure visit [facility] [address] [facility] [address] [place] [phone] [place] [address] [phone] documented as of this encounter Visit Diagnoses Not on filedocumented in this encounter Care Teams Hot Top Liner Relationship Specialty Start Date End Date Joseph Ratliff MD [address] [place] [phone] PCP - General Internal Medicine 06/23/14 04/03/22 Jorgito Buitrago MD [address] [address] PCP - General Family Medicine 04/04/22 documented as of this encounter
--- OUTSIDE RECORDS SUMMARY | 2025-06-22 18:48 | XMS_ITS | Encounter Summary ---
Author Organization [facility] Address [address] [facility] [place] [address] Care Team Providers Care Child Caregiver Name Role Phone Joseph Ratliff MD Primary Care Provider [phone] Jorgito Buitrago MD Primary Care Provider + Encounter Details Date Type Department Care Team (Late st Contact Info) Description 09/04/2017 [facility] Outpatient Visit EXTERNAL NON-[facility] DEPT Unknown, Provider Social History Tobacco Use Types Packs/Day Years Used Date Smoking Tobacco: Never Smokeless Tobacco: Never Alcohol Use Standard Drinks/Week Comments No 0 (1 standard drink = 0.6 oz pur e alcohol) Comments Unknown Sex and Gender Information Value Date Recorded Sex Assigned at Female 02/16/2023 11:16 AM CDT Legal Sex Female 6:19 AM SHIPPING RECEIVING CLERK Gender Identity Female 02/16/2023 11:16 AM CDT Sexual Orientation Not on file 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 Not on file Not on file documented as of this encounter Plan of Treatment Upcoming Encounters Date Type Department Care Team (Late st Contact Info) Description 06/23/2025 10:40 AM SHIPPING RECEIVING CLERK Procedure [facility] [address] [facility] [address] [place] [phone] [place] [address] [phone] documented as of this encounter Visit Diagnoses Not on filedocumented in this encounter Care Teams Child Caregiver Relationship Specialty Start Date End Date Joseph Ratliff MD [address] [place] [phone] PCP - General Internal Medicine 06/23/14 04/03/22 Jorgito Buitrago MD [address] [address] PCP - General Family Medicine 04/04/22 documented as of this encounter
--- OUTSIDE RECORDS SUMMARY | 2025-06-22 18:48 | XMS_ITS | Encounter Summary ---
Author Organization [facility] Address [address] [facility] [place] [address] Care Team Providers Care Marketing Communication Manager Name Role Phone Joseph Ratliff MD Primary Care Provider Jorgito Buitrago MD Primary Care Provider + Encounter Details Date Type Department Care Team (Late st Contact Info) Description 04/26/2018 [facility] Outpatient Visit EXTERNAL NON-[facility] DEPT Unknown, Provider Social History Tobacco Use Types Packs/Day Years Used Date Smoking Tobacco: Never Smokeless Tobacco: Never Alcohol Use Standard Drinks/Week Comments No 0 (1 standard drink = 0.6 oz pur e alcohol) Comments Unknown Sex and Gender Information Value Date Recorded Sex Assigned at Female 02/16/2023 11:16 AM CDT Legal Sex Female 6:19 AM MENTAL HEALTH PROGRAM SPECIALIST Gender Identity Female 02/16/2023 11:16 AM CDT Sexual Orientation Not on file 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 Not on file Not on file documented as of this encounter Plan of Treatment Upcoming Encounters Date Type Department Care Team (Late st Contact Info) Description 06/23/2025 10:40 AM MENTAL HEALTH PROGRAM SPECIALIST Procedure visit [facility] [address] [facility] [address] [place] [phone] [place] [address] [phone] documented as of this encounter Visit Diagnoses Not on filedocumented in this encounter Care Teams Marketing Communication Manager Relationship Specialty Start Date End Date Joseph Ratliff MD [address] [place] [phone] PCP - General Internal Medicine 06/23/14 04/03/22 Jorgito Buitrago MD [address] [address] PCP - General Family Medicine 04/04/22 documented as of this encounter
--- OUTSIDE RECORDS SUMMARY | 2025-06-22 18:48 | XMS_ITS | Encounter Summary ---
Author Organization [facility] Address [address] [facility] [place] [address] Care Team Providers Care Stereotype Finisher Name Role Phone Joseph Ratliff MD Primary Care Provider [phone] Jorgito Buitrago MD Primary Care Provider + Encounter Details Date Type Department Care Team (Late st Contact Info) Description 11/12/2020 [facility] Outpatient Visit EXTERNAL NON-[facility] DEPT Unknown, Provider Social History Tobacco Use Types Packs/Day Years Used Date Smoking Tobacco: Never Smokeless Tobacco: Never Alcohol Use Standard Drinks/Week Comments No 0 (1 standard drink = 0.6 oz pur e alcohol) Comments Unknown Sex and Gender Information Value Date Recorded Sex Assigned at Female 02/16/2023 11:16 AM CDT Legal Sex Female 6:19 AM CHROMIUM PLATER Gender Identity Female 02/16/2023 11:16 AM CDT Sexual Orientation Not on file 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 Not on file Not on file documented as of this encounter Plan of Treatment Upcoming Encounters Date Type Department Care Team (Late Contact Info) Description 06/23/2025 10:40 AM CHROMIUM PLATER Procedure visit [facility] [address] [facility] [address] [place] [phone] [place] [address] [facility] [address] [phone] documented as of this encounter Visit Diagnoses Not on filedocumented in this encounter Care Teams Stereotype Finisher Relationship Specialty Start Date End Date Joseph Ratliff MD [address] [place] [phone] PCP - General Internal Medicine 06/23/14 04/03/22 Jorgito Buitrago MD [address] [address] PCP - General Family Medicine 04/04/22 documented as of this encounter
--- OUTSIDE RECORDS SUMMARY | 2025-06-22 18:48 | XMS_ITS | Encounter Summary ---
Author Organization [facility] Address [address] [facility] [place] [address] Care Team Providers Care Towel Sorter Name Role Phone Joseph Ratliff MD Primary Care Provider Jorgito Buitrago MD Primary Care Provider + Encounter Details Date Type Department Care Team (Late st Contact Info) Description 09/06/2020 [facility] Outpatient Visit EXTERNAL NON-[facility] DEPT Unknown, Provider Social History Tobacco Use Types Packs/Day Years Used Date Smoking Tobacco: Never Smokeless Tobacco: Never Alcohol Use Standard Drinks/Week Comments No 0 (1 standard drink = 0.6 oz pur e alcohol) Comments Unknown Sex and Gender Information Value Date Recorded Sex Assigned at Female 02/16/2023 11:16 AM CDT Legal Sex Female 6:19 AM SPECIAL TECHNICAL OPERATIONS OFFICER Gender Identity Female 02/16/2023 11:16 AM CDT Sexual Orientation Not on file 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 Not on file Not on file documented as of this encounter Plan of Treatment Upcoming Encounters Date Type Department Care Team (Late Contact Info) Description 06/23/2025 10:40 AM SPECIAL TECHNICAL OPERATIONS OFFICER Procedure visit [facility] [address] [facility] [address] [place] [phone] [place] [address] [facility] [address] [phone] documented as of this encounter Visit Diagnoses Not on filedocumented in this encounter Care Teams Towel Sorter Relationship Specialty Start Date End Date Joseph Ratliff MD [address] [place] [phone] PCP - General Internal Medicine 06/23/14 04/03/22 Jorgito Buitrago MD [address] [address] PCP - General Family Medicine 04/04/22 documented as of this encounter
--- OUTSIDE RECORDS SUMMARY | 2025-06-22 18:48 | XMS_ITS | Clinical Summary ---
Author Organization [employer] Address [address] [place] [address] Care Team Providers Care Specimen Accessioner Name Role Phone No, Pcp BIOLOGY TUTOR Primary Care Provider Unavailabl e Social History Tobacco Use Types Packs/Day Years Used Date Smoking Tobacco: Never Assessed Comments Unknown Sex and Gender Information Value Date Recorded Sex Assigned at Not on file Legal Sex Female 1:17 PM EST Gender Identity Not on file Sexual Orientation Not on file Plan of Treatment Not on file Medical Devices Not on file Care Teams Specimen Accessioner Relationship Specialty Start Date End Date No, Pcp, BIOLOGY TUTOR N/A Do not use PCP - General Family Medicine 08/15/20
--- OUTSIDE RECORDS SUMMARY | 2025-06-22 18:48 | XMS_ITS | Encounter Summary ---
Author Organization [facility] Address [address] [place] [address] Care Team Providers Care Trial Mgr Name Role Phone Joseph Ratliff MD Primary Care Provider [phone] Jorgito Buitrago MD Primary Care Provider + [...] AM CDT Legal Sex Female 6:19 AM CENTRAL OFFICE OPERATOR SUPERVISOR Gender Identity Female 02/16/2023 11:16 AM CDT Sexual Orientation Not on file 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 Not on file Not on file documented as of this encounter Plan of Treatment Upcoming Encounters Date Type Department Care Team (Late st Contact Info) Description 06/23/2025 10:40 AM CENTRAL OFFICE OPERATOR SUPERVISOR Procedure visit [facility] [address] [facility] [address] [place] [phone] [place] [address] [phone] documented as of this encounter Visit Diagnoses Not on filedocumented in this encounter Care Teams Trial Mgr Relationship Specialty Start Date End Date Joseph Ratliff MD [address] [place] [phone] PCP - General Internal Medicine 06/23/14 04/03/22 Jorgito Buitrago MD [address] [address] PCP - General Family Medicine 04/04/22 documented as of this encounter
--- OUTSIDE RECORDS SUMMARY | 2025-06-22 18:48 | XMS_ITS | Encounter Summary ---
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 Not on file Not on file documented as of this encounter Plan of Treatment Upcoming Encounters Date Type Department Care Team (Late st Contact Info) Description 06/23/2025 10:40 AM MILL TENDER WARM UP Procedure visit [facility] [address] [facility] [address] [place] [phone] [place] [address] [phone] documented as of this encounter Visit Diagnoses Not on filedocumented in this encounter Care Teams Dry Cure Worker Relationship Specialty Start Date End Date Joseph Ratliff MD [address] [place] [phone] PCP - General Internal Medicine 06/23/14 04/03/22 Jorgito Buitrago MD [address] [address] PCP - General Family Medicine 04/04/22 documented as of this encounter
--- OUTSIDE RECORDS SUMMARY | 2025-06-22 18:48 | XMS_ITS | Encounter Summary ---
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 Not on file Not on file documented as of this encounter Plan of Treatment Upcoming Encounters Date Type Department Care Team (Late Contact Info) Description 06/23/2025 10:40 AM B2B MANAGED SERVICE SALES EXEC Procedure visit Replaced by [facility] [address] [facility] [address] [place] [phone] [place] [address] [facility] [address] [phone] documented as of this encounter Visit Diagnoses Not on filedocumented in this encounter Care Teams Brush Worker Relationship Specialty Start Date End Date Joseph Ratliff MD [address] [place] [phone] PCP - General Internal Medicine 06/23/14 04/03/22 Jorgito Buitrago MD [address] [address] PCP - General Family Medicine 04/04/22 documented as of this encounter
--- OUTSIDE RECORDS SUMMARY | 2025-06-22 18:48 | XMS_ITS | Clinical Summary ---
Author Organization [facility] [address] [address] Address [address] [place] [phone] Care Team Providers Care Manager R D Name Role Phone Jorgito Buitrago MD Primary [...] on file Legal Sex Female 4:02 AM CUSTOMER LIAISON Gender Identity Female 02/12/2023 10:45 AM CDT [...] 03/30/2021 Zoster Vaccine Completed 08/06/2020, 05/28/2020 Insurance [employer] [address] [place] [address] [facility] [place] [address] Care Teams Manager R D Relationship Specialty Start Date End Date Jorgito Buitrago MD PCP - General Family Medicine 02/07/23
--- OUTSIDE RECORDS SUMMARY | 2025-06-22 18:48 | XMS_ITS | Clinical Summary ---
Author Organization [facility] Address [address] [facility] [place] [address] Care Team Providers Care Summons Server Name Role Phone Jorgito Buitrago MD Primary Care Provider + Source Comments [facility],non-owned Affiliates and Associated Physician Practices is amultiple site organization consisting of ambulatory clinics and hospital sitesin [place], [place], [place] and [place]. This disclosure is being madepursuant to the Care Everywhere program and may not contain all information available regarding this patient. Last updated 18.[facility] [employer] Allergies No known active allergies Medications * Be aware that medications may not be up to date on this document. Alwaysverify current medications with the patient. atorvastatin (LIPITOR) 40 MG tablet Take 1 (one) tablet by mouth at bedtime Active risedronate Sodium (ACTONEL) 150 MG tablet Take 1 (one) tablet by mouth every 30 days Active B Iuxejfk-G-Estap Acid (SUPER B COMPLEX/FA/VIT C PO) Active [...] Description 04/14/2025 10:40 AM CDT Procedure visit [address] [phone] Forrest Fernandez MD Sialorrhea ; [...] AM CDT Legal Sex Female 6:19 AM FIELD CHECKER Gender Identity Female 02/16/2023 11:16 AM CDT [...] st Contact Info) Description 06/23/2025 10:40 AM FIELD CHECKER Procedure visit [facility] [address] [facility] [address] [place] [phone] [place] [address] [phone] Health Maintenance Due Date Last [...] patient's age to complete this topic [place] [address] [employer] SELF PAY NO INSURANCE Member Subscriber Plan / Payer (Ef fective for All Dates) Name:Aster Goodman Member ID:Not on file Relation to Subscriber:Not on file Name:ASTER GOODMAN Subscriber ID:Not on file (Home) Address: [address] [place], [place] [address] [address] Payer ID:Not on file Group ID:Not on file Type:Self Pay Address: [place], [place] Care Teams Summons Server Relationship Specialty Start Date End Date Jorgito Buitrago MD [address] [phone] PCP - General Family Medicine 04/04/22
--- OUTSIDE RECORDS SUMMARY | 2025-06-22 18:48 | XMS_ITS | Encounter Summary ---
Author Organization [facility] Address [address] [facility] [place] [address] Care Team Providers Care Nursing Staff Development Coordinator Name Role Phone Joseph Ratliff MD Primary Care Provider Jorgito Buitrago MD Primary Care Provider + Encounter Details Date Type Department Care Team (Late st Contact Info) Description 05/24/2018 [facility] Outpatient Visit EXTERNAL NON-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 Not on file Not on file documented as of this encounter Plan of Treatment Upcoming Encounters Date Type Department Care Team (Late st Contact Info) Description 06/23/2025 10:40 AM TAPE FASTENER MACHINE OPERATOR Procedure visit [facility] [address] [facility] [address] [place] [phone] [place] [address] [phone] documented as of this encounter Visit Diagnoses Not on filedocumented in this encounter Care Teams Nursing Staff Development Coordinator Relationship Specialty Start Date End Date Joseph Ratliff MD [address] [place] [phone] PCP - General Internal Medicine 06/23/14 04/03/22 Jorgito Buitrago MD [address] [address] PCP - General Family Medicine 04/04/22 documented as of this encounter
[2025-06-22 19:45] VITALS: BP 142/74; PULSE 72; RESP 20; TEMP 36.4; O2SAT 100
== END 2025-06-22 19:46 | disposition home or self-care (01) ==
LOC: ANHED 18:46
PROVIDERS: Emergency Provider Nurse Practitioner Family; PCP Family Medicine
DX: S01.112A Laceration without foreign body of left eyelid and periocular area, initial encounter (principal); Z23 Encounter for immunization; G20.A1 Parkinson's disease without dyskinesia, without mention of fluctuations; I73.00 Raynaud's syndrome without gangrene; E78.00 Pure hypercholesterolemia, unspecified; N32.81 Overactive bladder; W10.9XXA Fall (on) (from) unspecified stairs and steps, initial encounter
CPT/HCPCS: 12002; 12013; 70450; 70486; 72125; 90471; 90715; 99284